=== PATIENT | female | born 1945 | race Caucasian/White ===

== ENCOUNTER → 2017-11-07 10:14 | Outpatient (CLI) | payer MEDICARE, OTHER, SELFPAY ==
--- NOTE | 2017-11-07 | DI.MG.S_ITS ---
BILATERAL DIGITAL SCREENING MAMMOGRAM 3D/2D WITH CAD: 11/07/2017 CLINICAL: Routine screening. Baseline exam. No prior exams were available for comparison. There are scattered fibroglandular elements in both breasts. Current study was also evaluated with a Computer Aided Detection (CAD) system. No significant masses, calcifications, or other findings are seen in either breast. IMPRESSION: NEGATIVE There is no mammographic evidence of malignancy. A 1 year screening mammogram is recommended. This exam was interpreted at Station ID: [id number]. NOTE: For mammograms, a report in lay terms will be sent to the patient. Approximately 15% of breast malignancies will not be visualized mammographically. In the management of a palpable breast mass, a negative mammogram must not discourage biopsy of a clinically suspicious lesion. Electronically Signed By: Jessie overton/manda:11/07/2017 10:42:44 letter sent: Normal Exam ACR BI-RADS Category 1: Negative [id number]
== END ==
PROVIDERS: PCP Physician Assistant; Visit Provider Physician Assistant
DX: Z12.31 Encounter for screening mammogram for malignant neoplasm of breast (principal)
CPT/HCPCS: 77063; 77067

== ENCOUNTER → 2018-03-23 13:41 | Outpatient (CLI) | payer MEDICARE, OTHER, SELFPAY ==
--- NOTE | 2018-03-23 | DI.MRI.S_ITS ---
PROCEDURE: MR LUMBAR SPINE WO CON INDICATIONS: SPINAL STENOSIS OF LUMBAR REGION TECHNIQUE: Noncontrast sagittal T1 spin echo and T2 fast echo, sagittal STIR, axial T1 and T2 fast spin echo through the lumbar spine. In cases with scoliosis, additional coronal T2 fast spin echo may be performed. COMPARISON: [facility], [place], XR LUMBAR SPINE 2 OR 3 VIEWS, 03/13/2018, 10:31. FINDINGS: Image quality: Excellent. Alignment and Curvature: 5 lumbar type vertebral wires are present by plain film. There is normal bony alignment. Bone Marrow: Marrow is of normal overall signal. No acute vertebral body compression fractures. Mild reactive signal within the endplates adjacent to the L3-L4, L4-L5, and L5-S1 intervertebral discs. Spinal Cord: Conus medullaris terminates at the upper L1 level. Visualized cord demonstrates normal signal and size. Paraspinous Soft Tissues: No paravertebral masses. L1-L2: Mild facet hypertrophy bilaterally. No significant canal, nor foraminal stenosis. L2-L3: Mild disc height loss and desiccation. Mild diffuse disc bulge with superimposed broad-based left far lateral protrusion. Mild facet and ligamentum flavum hypertrophy bilaterally. Mild canal stenosis. Mild left foraminal stenosis. No right foraminal stenosis. L3-L4: Mild disc height loss and desiccation. Moderate diffuse disc bulge. Mild facet and ligamentum flavum hypertrophy bilaterally. Mild canal stenosis. Mild foraminal stenosis bilaterally. L4-L5: Mild disc height loss and desiccation. Mild diffuse disc bulge with superimposed broad-based left far lateral protrusion. Bilateral facet hypertrophy. Mild canal stenosis. Mild left greater than right foraminal stenosis. There is disc abutment of the left L4 nerve root lateral to the neural foramen. L5-S1: Moderate disc height loss and desiccation. Moderate diffuse disc bulge with superimposed right far lateral broad-based protrusion. Mild facet hypertrophy bilaterally. No canal stenosis. Severe right foraminal stenosis. Mild left foraminal stenosis. Flattening deformity of the right L5 nerve root within the neural foramen. IMPRESSION: 1. Multilevel degenerative disc and facet disease, as well as ligamentum flavum hypertrophy. 2. Mild multilevel canal stenoses. 3. Multilevel foraminal stenoses, worse on the right at L5-S1, where there is flattening of the right L5 nerve root; recommend correlation with clinical symptoms to ascertain relevance of this finding. 4. There is disc abutment of the left L4 nerve root lateral to the foramen at the L4-5 disc space level. Recommend correlation with clinical symptoms to ascertain relevance of this finding. Dictated by: Jennifer Fortune M.D. on 03/23/2018 at 14:53 Approved by: Jennifer Fortune M.D. on 03/23/2018 at 15:05
== END ==
PROVIDERS: PCP Physician Assistant; Visit Provider Orthopaedic Surgery
DX: M48.061 Spinal stenosis, lumbar region without neurogenic claudication (principal); M48.07 Spinal stenosis, lumbosacral region; M51.36 Other intervertebral disc degeneration, lumbar region; M51.37 Other intervertebral disc degeneration, lumbosacral region
CPT/HCPCS: 72148

== ENCOUNTER → 2018-06-05 11:05 | Outpatient (CLI) | payer MEDICARE, OTHER, SELFPAY ==
--- NOTE | 2018-06-05 | DI.MRI.S_ITS ---
PROCEDURE: MR KNEE RT WO CON INDICATIONS: UNILATERAL PRIMARY OSTEOARTHRITIS OF RIGHT KNEE TECHNIQUE: Noncontrast sagittal PD fast spin echo and T2 fast spin echo with fat saturation, sagittal 3-D FLASH with fat saturation; coronal T1 spin echo and PD fast spin echo with fat saturation, and axial PD fast spin echo with fat saturation through the knee. COMPARISON: [facility], MR, KNEE WITHOUT CONTRAST, 08/22/2016, 9:45. FINDINGS: Image quality: Excellent. Menisci: Lateral meniscus appears grossly intact. Complex tear of the medial meniscus involving the posterior horn, body and possibly the anterior horn. There is extension of abnormal signal to the undersurface and prominent truncation of the free margin of the body and posterior horn. There is also near complete extrusion of the body on image 15 series 11. Cruciate ligaments: The anterior and posterior cruciate ligaments appear intact. Medial structures: The medial collateral ligament appears intact. The posterior oblique ligament, semimembranosus tendon insertions, oblique popliteal ligament, and meniscocapsular junction appear intact. Visualized portions of the pes anserinus tendons appear normal. No abnormal bursal fluid. Lateral structures: The lateral collateral ligament, long and short heads of the biceps femoris tendon appear intact. The popliteus tendon appears normal; the popliteofibular ligament appears intact. The posterosuperior and anteroinferior popliteomeniscal fascicles appear intact. The arcuate and fabellofibular ligaments appear intact, on either side of the lateral inferior geniculate artery. Iliotibial band appears normal. Anterior structures: Superficialinfrapatellar subcutaneous edema. The quadriceps and patellar tendons appear intact. Patellar alignment is normal. No femoral trochlear dysplasia or ventral trochlear prominence. No edema in the infrapatellar fat pad. The Bones and cartilage: No bone marrow contusions or fractures. Within the medial compartment, there is near full-thickness loss of the femoral and tibial articular cartilage with underlying subchondral marrow edema. Within the lateral compartment, and definite focal articular cartilage defect is seen. Within the patellofemoral compartment, diffuse surface fraying and partial-thickness loss of the patellar articular cartilage and mild surface fraying of the femoral trochlear cartilage. Joint space: Small joint effusion. There is a Alba's cyst which measures approximately 3 cm in the cephalocaudad dimension. Questionable punctate loose bodies seen in the posterior joint space, for example image 99 series 9 as well as in the suprapatellar recess image 93 series 9. This could be small debris and further evaluation with radiographs could be performed as clinically warranted. There is deep infrapatellar bursal fluid. IMPRESSION: Complex undersurface tear involving the body and posterior horn of the medial meniscus with near complete extrusion. This has progressed since the prior study dated 08/22/16 Degenerative joint disease, most pronounced the medial compartment. This finding is also progressed Small Alba cyst as before. Superficial infrapatellar subcutaneous edema. Small joint effusion. Deep infrapatellar bursitis, mildly increased Possible punctate loose bodies or debris as detailed above within the posterior joint space and the suprapatellar recess which appear new since the prior study. Further assessment with dedicated knee radiographs could be performed as clinically warranted. Dictated by: Prabhakar Gregory M.D. on 06/05/2018 at 15:01 Approved by: Prabhakar Gregory M.D. on 06/05/2018 at 15:14
== END ==
PROVIDERS: PCP Student in an Organized Health Care Education/Training Program; Visit Provider Orthopaedic Surgery
DX: S83.231A Complex tear of medial meniscus, current injury, right knee, initial encounter (principal); M17.11 Unilateral primary osteoarthritis, right knee; M71.21 Synovial cyst of popliteal space [Baker], right knee; M25.461 Effusion, right knee; M71.561 Other bursitis, not elsewhere classified, right knee; R60.9 Edema, unspecified
CPT/HCPCS: 73721

== ENCOUNTER → 2018-09-12 09:05 | Outpatient (CLI) | payer MEDICARE, OTHER, SELFPAY | PROVIDERS: PCP Student in an Organized Health Care Education/Training Program; Visit Provider Physician Assistant | DX: R30.0 Dysuria (principal) | CPT/HCPCS: 87077; 87086; 87186 ==

== ENCOUNTER → 2018-11-13 09:59 | Outpatient (CLI) | payer MEDICARE, OTHER, SELFPAY | PROVIDERS: PCP Student in an Organized Health Care Education/Training Program; Visit Provider Student in an Organized Health Care Education/Training Program | DX: Z13.820 Encounter for screening for osteoporosis (principal); Z78.0 Asymptomatic menopausal state; Z82.62 Family history of osteoporosis | CPT/HCPCS: 77080 ==

== ENCOUNTER → 2018-11-27 09:27 | Outpatient (CLI) | payer MEDICARE, OTHER, SELFPAY ==
[2018-11-27 10:33] LABS: Alanine Aminotransferase 24 IU/L (9-52); Albumin Globulin Ratio 1.5 (1.0-2.8); Alkaline Phosphatase 74 U/L (38-126); Aspartate Aminotransferase 25 IU/L (14-36); Bilirubin Total 0.7 mg/dL (0.2-1.3); Blood Urea Nitrogen 12 mg/dL (7-17); Calcium 9.9 mg/dL (8.4-10.2); Carbon Dioxide 30 mmol/L (22-32); Chloride 103 mmol/L (98-107); Estimated Glomerular Filt Rate > 60.0 mL/min (>60); Globulin 2.7 g/dL (1.7-4.1); Glucose 94 mg/dL (80-110); HEMOLYSIS 17 (0-50); Potassium 3.8 mmol/L (3.4-5.1); Sodium 140 mmol/L (137-145); Total Protein 6.7 g/dL (6.3-8.2)
[2018-11-27 10:50] LABS: Free T3, Triiodothyronine Free 3.27 pg/mL (2.77-5.27); Free T4, Direct Thyroxine 1.53 ng/dL (0.78-2.19)
[2018-11-27 11:04] LABS: Thyroid Stimulating Hormone 0.07 uIU/mL (0.47-4.68)
== END ==
PROVIDERS: PCP Student in an Organized Health Care Education/Training Program; Visit Provider Student in an Organized Health Care Education/Training Program
DX: E03.9 Hypothyroidism, unspecified (principal); E78.2 Mixed hyperlipidemia; I10 Essential (primary) hypertension; Z79.899 Other long term (current) drug therapy
CPT/HCPCS: 36415; 80053; 84439; 84443; 84481

== ENCOUNTER → 2018-12-06 13:43 | Outpatient (CLI) | payer MEDICARE, OTHER, SELFPAY ==
[2018-12-06 13:47] LABS: Bacteria Urine None Seen; RBC Urine None Seen (0-5/HPF)
[2018-12-06 15:37] LABS: Appearance Urine UA CLEAR; Bilirubin Urine UA NEGATIVE (NEGATIVE); Color Urine UA YELLOW; Glucose Urine UA NEGATIVE (Negative); Ketones Urine UA NEGATIVE (NEGATIVE); Leukocyte Esterase Urine UA NEGATIVE (NEGATIVE); Nitrite Urine UA NEGATIVE (Negative); Occult Blood Urine UA NEGATIVE (Negative); Protein Urine UA NEGATIVE (Negative); Specific Gravity Urine UA <=1.005 (1.000-1.035); Urobilinogen Urine UA 0.2 E.U./dL (0.2); pH Urine UA 6.5 (4.5-8.0)
[2018-12-06 15:53] LABS: Culture Indicated Urine Cult Not Indicated; Squamous Epithelial Cell Urine 0-1 /HPF (0-5/HPF); WBC Urine 0-1/HPF (0-5/HPF)
== END ==
PROVIDERS: PCP Student in an Organized Health Care Education/Training Program; Visit Provider Student in an Organized Health Care Education/Training Program
DX: R30.0 Dysuria (principal)
CPT/HCPCS: 81001

== ENCOUNTER → 2018-12-14 15:07 | Outpatient (CLI) | payer MEDICARE, OTHER, SELFPAY ==
--- NOTE | 2018-12-14 | DI.US.S_ITS ---
PROCEDURE: US PERIPH VENOUS LOW EXTREM RT INDICATIONS: RIGHT LOWER LEG PAIN TECHNIQUE: Real-time imaging, as well as color and pulse Doppler interrogation, were performed of the lower extremity deep veins from the inguinal ligament to the popliteal fossa. COMPARISON: None. FINDINGS: The common femoral, femoral and popliteal veins are normally compressible, and free of intraluminal thrombus. Color and pulse Doppler demonstrate normal phasic intraluminal flow. There is normal augmentation response to distal compression maneuver. Small Alba's cyst, which may be ruptured. IMPRESSION: 1. No deep venous thrombosis identified within the right lower extremity. 2. Small ruptured Alba's cyst Dictated by: Stanley Denton [facility] Interpreted: Prabhakar Gregory MD on 12/14/2018 at 16:37 Approved by: Prabhakar Gregory M.D. on 12/17/2018 at 13:37
== END ==
PROVIDERS: PCP Student in an Organized Health Care Education/Training Program; Visit Provider Orthopaedic Surgery
DX: M79.661 Pain in right lower leg (principal); M66.0 Rupture of popliteal cyst
CPT/HCPCS: 93971

== ENCOUNTER 2018-12-25 15:05 | Emergency (ER) | payer MEDICARE, OTHER, SELFPAY ==
[2018-12-25 15:20] VITALS: BP 138/89; PULSE 69; RESP 18; TEMP 37.1; O2SAT 96
--- NOTE | 2018-12-25 15:23 | DI.US.S_ITS ---
PROCEDURE: US ABDOMEN LIMITED INDICATIONS: RIGHT UPPER QUADRANT PAIN TECHNIQUE: Real-time focused scanning was performed of the abdomen, with image documentation. COMPARISON: None. FINDINGS: The liver demonstrates normal size. The liver demonstrates generalized increased echogenicity. This decreases ultrasound sensitivity for detection of hepatic masses. No findings of gallstones or sludge are seen. The gallbladder wall is not thickened, measuring 3 mm or less. No specific pericholecystic fluid is seen. The sonographic Silverman sign is negative. There is no biliary dilatation, the common bile duct measures 3 mm. The visualized pancreas is unremarkable. IMPRESSION: The gallbladder demonstrates a normal sonographic appearance. No biliary dilatation is seen. The liver demonstrates increased echogenicity. This finding is nonspecific, yet it is most commonly attributed to fatty infiltration. Dictated by: Robert Mcnamara M.D. on 12/25/2018 at 15:27 Approved by: Robert Mcnamara M.D. on 12/25/2018 at 15:29
[2018-12-25 15:44] LABS: Add Manual Diff / Slide Review NO; Basophils Absolute Auto 100 /uL (0-100); Basophils Percent Auto 0.9 % (0-2); Eosinophils Absolute Auto 200 /uL (0-450); Eosinophils Percent Auto 2.4 % (2-4); Hematocrit 37.5 % (36-46); Hemoglobin 13.1 g/dL (12.0-16.0); Lymphocytes Absolute Auto 2000 /uL (1100-4500); Lymphocytes Percent Auto 24.5 % (25-40); Mean Corpuscular HGB Conc 34.8 % (30-36); Mean Corpuscular Hemoglobin 31.3 PG (26-34); Monocytes Absolute Auto 800 /uL (0-900); Monocytes Percent Auto 9.9 % (3-14); Neutrophils Absolute Auto 5200 /uL (1500-7000); Neutrophils Percent Auto 62.3 % (50-75); Platelet Count 251 X10^3/uL (150-400); Red Blood Cell Count 4.17 X10^6/uL (4.0-5.2); White Blood Cell Count 8.3 X10^3/uL (4.5-11.0)
--- NOTE | 2018-12-25 15:51 | ED.ABDPAIN ---
HPI - Abdominal Pain <Monserrat Anthony PA-C - Last Filed: 12/25/18 20:30> General Chief Complaint: Abdominal Pain Stated Complaint: PAIN ON RIGHT SIDE OF RIB AND TWISTED RIGHT KNEEE Time Seen by Provider: 12/25/18 15:30 Source: patient Mode of arrival: ambulatory Limitations: no limitations History of Present Illness HPI narrative: This 73-year-old female comes to ED secondary to worsening right side/rib pain. She states that this started late Monday afternoon, she thought due to pulling heavy garden hose, denies any other specific injury. She states that she has had increased pain throughout the day yesterday, last night and today. She states that pain worsens with taking a deep breath or pressure on the area. She denies any cough, chest pain aside from this or dyspnea. She has asthma and has not had worsening of her symptoms. She denies any nausea, vomiting, or fever. She has not had any abdominal pain, urinary symptoms, or bowel habit changes. She denies any new foods or diet change. She states that in rushing to come in she twisted her right knee, already has arthritis there, and has had some increased pain and swelling since, no sensation of laxity. She otherwise denies any new lower extremity pain or swelling Related Data Home Medications Medication Instructions Recorded Confirmed cholecalciferol (vitamin D3) 1 tab PO QDAY #0 10/17/16 11/21/18 [Vitamin D3] CBD PO .QD 11/21/18 11/21/18 Forskolin Extract PO .QD 11/21/18 11/21/18 paroxetine HCl 10 mg PO DAILY 12/25/18 12/25/18 Previous Rx's Medication Instructions Recorded Fish Oil 1,000 mg PO BID #180 cap 02/08/16 [glucosamine/MSM] 1,500 mg Q DAY #90 tab 02/08/16 cyanocobalamin (vitamin B-12) 1,500 mcg PO QDAY #90 tab-cap 02/08/16 [Vitamin B-12] fluticasone propionate 220 1 puff INHALATION BID #12 gram 02/22/18 mcg/actuation HFA aerosol inhaler folic acid 1 mg tablet 1 mg PO QDAY #90 tab 05/25/18 irbesartan 150 mg tablet 150 mg PO QDAY #90 tab 05/25/18 paroxetine 40 mg tablet 40 mg PO QDAY #90 tab 06/28/18 zolpidem 5 mg tablet 5 mg PO HSP PRN #10 tab 06/28/18 fluticasone 250 mcg-salmeterol 50 1 inhalation INHALATION BID #60 07/25/18 mcg/dose blistr powdr for dose inhalation levothyroxine 125 mcg tablet 125 mcg PO QDAY #90 tab 08/28/18 montelukast 10 mg tablet 10 mg PO QDAY #90 tab 09/28/18 liothyronine 5 mcg tablet 5 mcg PO QDAY #90 tab 10/16/18 atorvastatin 20 mg tablet 20 mg PO HS #90 tab 11/21/18 omeprazole 20 mg capsule,delayed 20 mg PO Q DAY #90 cap 11/21/18 release buspirone 5 mg tablet 5 mg PO BID #60 tab 12/19/18 lidocaine [Lidoderm] 3 patch TOP DAILY #30 each 12/25/18 oxycodone-acetaminophen [Percocet] 1 tab PO Q4-6H PRN #12 tab 12/25/18 potassium chloride 10 meq PO DAILY #7 tab 12/25/18 Allergies Allergy/AdvReac Type Severity Reaction Status Date / Time latex Allergy Rash Verified 11/21/18 13:28 Review of Systems <Monserrat Anthony PA-C - Last Filed: 12/25/18 20:30> Review of Systems ROS Unobtainable: All systems reviewed & are unremarkable except as noted in HPI and below PFSH <Monserrat Anthony PA-C - Last Filed: 12/25/18 20:30> Medical History Asthma (Chronic) Facet arthropathy of spine (Chronic) Hypothyroidism (Chronic) Multiple benign nevi (Chronic) Seborrheic keratoses (Chronic) Spinal stenosis, lumbar (Chronic) Spine pain, lumbosacral (Chronic) Tear of medial meniscus of right knee (Resolved 03/2016) Surgical History (Updated 05/23/18 @ 12:48 by Janeth Antonio) History of appendectomy (Resolved) History of hysterectomy (Resolved) S/P arthroscopic partial medial meniscectomy (Resolved 09/06/16) Social History Smoking Status: Never smoker alcohol intake: never substance use type: does not use Social History Smoking Status: Never smoker alcohol intake: never substance use type: does not use Exam <Monserrat Anthony PA-C - Last Filed: 12/25/18 20:30> Narrative Exam Narrative: GENERAL APPEARANCE: Patient sitting comfortably, in no distress. HEENT: PERRL, EOMI, no scleral icterus, normal oropharynx NECK: Supple LUNGS: Clear to auscultation bilaterally. CHEST: Tender along the course of the right 12 rib anterior lateral, no tenderness elsewhere over the chest HEART: Rate and rhythm regular, normal S1 and S2, no S3 or S4. ABDOMEN: Soft, moderate right upper quadrant tenderness, most at the costal margin, no guarding or rebound, nondistended, bowel sounds present x 4 quadrants, no masses palpable, no hepatosplenomegaly. No CVAT EXTREMITIES: No edema, no cyanosis DERMATOLOGIC: No jaundice or exanthem NEUROLOGIC: Alert and oriented with normal speech and coordination Initial Vital Signs Initial Vital Signs: Vital Signs Temperature 98.7 F 12/25/18 15:20 Pulse Rate 69 12/25/18 15:20 Respiratory Rate 18 12/25/18 15:20 Blood Pressure 138/89 12/25/18 15:20 Pulse Oximetry 96 12/25/18 15:20 <Ifrah Luther MD - Last Filed: 12/27/18 09:01> Initial Vital Signs Initial Vital Signs: Vital Signs Temperature 98.7 F 12/25/18 15:20 Pulse Rate 69 12/25/18 15:20 Respiratory Rate 18 12/25/18 15:20 Blood Pressure 138/89 12/25/18 15:20 Pulse Oximetry 96 12/25/18 15:20 Course <Monserrat Anthony PA-C - Last Filed: 12/25/18 20:30> Additional Information: Suspect intercostal strain/rib contusion based on patient's history and exam findings. Reviewed no acute findings on the lab work or imaging studies to explain symptoms. Patient unable to tolerate anti-inflammatories apparently due to worsening of her asthma on them in the past. Pain medication prescribed and she will follow up with her PCP this week. She agreed to return if any acutely worsening symptoms in the interim. Orders Ordered: Discontinued Medications Oxycodone/Acetaminophen (Percocet 5/325) 1 tab PO NOW ONE Stop: 12/25/18 17:16 Last Admin: 12/25/18 17:19 Dose: 1 tab Vital Signs - 8 hr 12/25/18 15:20 12/25/18 17:25 Temperature 98.7 F Pulse Rate 69 63 Respiratory Rate 18 17 Blood Pressure 138/89 Blood Pressure [Left Arm] 138/70 Pulse Oximetry 96 100 <Ifrah Luther MD - Last Filed: 12/27/18 09:01> Orders Ordered: Discontinued Medications Oxycodone/Acetaminophen (Percocet 5/325) 1 tab PO NOW ONE Stop: 12/25/18 17:16 Last Admin: 12/25/18 17:19 Dose: 1 tab Vital Signs - 8 hr 12/25/18 15:20 12/25/18 17:25 Temperature 98.7 F Pulse Rate 69 63 Respiratory Rate 18 17 Blood Pressure 138/89 Blood Pressure [Left Arm] 138/70 Pulse Oximetry 96 100 MDM - Abdominal Pain <Monserrat Anthony PA-C - Last Filed: 12/25/18 20:30> Lab Data Attestation: I reviewed the patient's lab results. Result diagrams: 12/25/18 15:39 12/25/18 15:39 Lab Results 12/25/18 12/25/18 12/25/18 Range/Units 15:39 15:39 15:39 WBC 8.3 (4.5-11.0) X10^3/uL RBC 4.17 (4.0-5.2) X10^6/uL Hgb 13.1 (12.0-16.0) g/dL Hct 37.5 (36-46) % MCV 90.0 (80-100) fL MCH 31.3 (26-34) PG MCHC 34.8 (30-36) % RDW 14.0 (11.6-14.8) % Plt Count 251 (150-400) X10^3/uL Neut % (Auto) 62.3 (50-75) % Lymph % (Auto) 24.5 L (25-40) % [place] % (Auto) 9.9 (3-14) % Eos % (Auto) 2.4 (2-4) % Baso % (Auto) 0.9 (0-2) % Neut # (Auto) 5200 (4228-4322) /uL Lymph # (Auto) 2000 (8143-8870) /uL [place] # (Auto) 800 (0-900) /uL Eos # (Auto) 200 (0-450) /uL Baso # (Auto) 100 (0-100) /uL Sodium 142 (137-145) mmol/L Potassium 3.0 L (3.4-5.1) mmol/L Chloride 105 (98-107) mmol/L Carbon Dioxide 26 (22-32) mmol/L BUN 12 (7-17) mg/dL Creatinine 0.70 (0.52-1.04) mg/dL Estimated GFR > 60.0 (>60) mL/min BUN/Creatinine Ratio 17.1 (6-22) Glucose 107 (80-110) mg/dL Calcium 9.4 (8.4-10.2) mg/dL Total Bilirubin 0.5 (0.2-1.3) mg/dL AST 26 (14-36) IU/L ALT 23 (9-52) IU/L Alkaline Phosphatase 96 (38-126) U/L Total Creatine Kinase 57 (30-135) U/L CK-MB (CK-2) TNP CK-MB (CK-2) Rel Index TNP Troponin I < 0.012 (0.01-0.034) ng/mL Total Protein 7.2 (6.3-8.2) g/dL Albumin 4.1 (3.5-5.0) g/dL Globulin 3.1 (1.7-4.1) g/dL Albumin/Globulin Ratio 1.3 (1.0-2.8) Lipase 54 (23-300) U/L Point of care testing: Urine Dip Bedside Urine Glucose Negative Bedside Urine Bilirubin - Negative Bedside Urine Ketone - Negative Urine Specific [place] 1.020 Bedside Urine Occult Blood - Negative Bedside Urine pH 6.0 Bedside Urine Protein - Negative Bedside Urine Urobilinogen - Negative Bedside Urine Nitrite - Negative Bedside Urine Leukocytes - Negative Esterase Imaging Data US - abdomen: Radiologist's impression: [address] [address] Ultrasound Report Signed Patient: Zora Stevenson LMR#: [id number] : 1946Acct:[id number] Age/Sex: 73 / FDate of Service: 12/25/18 Loc: ED Accession Number: [id number] Procedure: US abdomen limited Ordering Provider: Ifrah Luther MD PROCEDURE: US ABDOMEN LIMITED INDICATIONS: RIGHT UPPER QUADRANT PAIN TECHNIQUE: Real-time focused scanning was performed of the abdomen, with image documentation. COMPARISON: None. FINDINGS: The liver demonstrates normal size. The liver demonstrates generalized increased echogenicity. This decreases ultrasound sensitivity for detection of hepatic masses. No findings of gallstones or sludge are seen. The gallbladder wall is not thickened, measuring 3 mm or less. No specific pericholecystic fluid is seen. The sonographic Silverman sign is negative. There is no biliary dilatation, the common bile duct measures 3 mm. The visualized pancreas is unremarkable. IMPRESSION: The gallbladder demonstrates a normal sonographic appearance. No biliary dilatation is seen. The liver demonstrates increased echogenicity. This finding is nonspecific, yet it is most commonly attributed to fatty infiltration. Dictated by: Robert Mcnamara M.D. on 12/25/2018 at 15:27 Approved by: Robert Mcnamara M.D. on 12/25/2018 at 15:29 ECG Data Attestation: I personally reviewed and interpreted this ECG as follows: (Normal sinus rhythm, rate 69, normal axis) <Ifrah Luther MD - Last Filed: 12/27/18 09:01> Lab Data Lab Results 12/25/18 12/25/18 12/25/18 Range/Units 15:39 15:39 15:39 WBC 8.3 (4.5-11.0) X10^3/uL RBC 4.17 (4.0-5.2) X10^6/uL Hgb 13.1 (12.0-16.0) g/dL Hct 37.5 (36-46) % MCV 90.0 (80-100) fL MCH 31.3 (26-34) PG MCHC 34.8 (30-36) % RDW 14.0 (11.6-14.8) % Plt Count 251 (150-400) X10^3/uL Neut % (Auto) 62.3 (50-75) % Lymph % (Auto) 24.5 L (25-40) % [place] % (Auto) 9.9 (3-14) % Eos % (Auto) 2.4 (2-4) % Baso % (Auto) 0.9 (0-2) % Neut # (Auto) 5200 (7385-2447) /uL Lymph # (Auto) 2000 (6580-9903) /uL [place] # (Auto) 800 (0-900) /uL Eos # (Auto) 200 (0-450) /uL Baso # (Auto) 100 (0-100) /uL Sodium 142 (137-145) mmol/L Potassium 3.0 L (3.4-5.1) mmol/L Chloride 105 (98-107) mmol/L Carbon Dioxide 26 (22-32) mmol/L BUN 12 (7-17) mg/dL Creatinine 0.70 (0.52-1.04) mg/dL Estimated GFR > 60.0 (>60) mL/min BUN/Creatinine Ratio 17.1 (6-22) Glucose 107 (80-110) mg/dL Calcium 9.4 (8.4-10.2) mg/dL Total Bilirubin 0.5 (0.2-1.3) mg/dL AST 26 (14-36) IU/L ALT 23 (9-52) IU/L Alkaline Phosphatase 96 (38-126) U/L Total Creatine Kinase 57 (30-135) U/L CK-MB (CK-2) TNP CK-MB (CK-2) Rel Index TNP Troponin I < 0.012 (0.01-0.034) ng/mL Total Protein 7.2 (6.3-8.2) g/dL Albumin 4.1 (3.5-5.0) g/dL Globulin 3.1 (1.7-4.1) g/dL Albumin/Globulin Ratio 1.3 (1.0-2.8) Lipase 54 (23-300) U/L Point of care testing: Urine Dip Bedside Urine Glucose Negative Bedside Urine Bilirubin - Negative Bedside Urine Ketone - Negative Urine Specific [place] 1.020 Bedside Urine Occult Blood - Negative Bedside Urine pH 6.0 Bedside Urine Protein - Negative Bedside Urine Urobilinogen - Negative Bedside Urine Nitrite - Negative Bedside Urine Leukocytes - Negative Esterase Discharge Plan Departure Patient Disposition: Home Clinical Impression: Rib pain on right side Intercostal muscle strain Qualifiers: Encounter type: initial encounter Qualified Code(s): S29.011A - Strain of muscle and tendon of front wall of thorax, initial encounter Discharge Date/Time: 12/25/18 17:34 Interventions: ED Discharge Assessment Last Done: 12/25/18 17:33 Instructions: DI for Costochondritis Activity Restrictions/Additional Instructions: I think that have strained muscles at the insertion and in between your right lower ribs, and this is causing your pain. I have given you instructions for costochondritis because they are similar. Please take the pain medicine as needed (do not drive as it can make you sleepy). Try the topical pain patches as well for this and your knee as needed. Please follow the instructions the respiratory therapist gave you including doing the ?pillow hugging? technique and taking deep breaths multiple times daily to help keep your lungs expanded. Use your inhalers as usual. Return as we talked about if you have any new or acutely worsening symptoms, i.e. acute increase in pain, new shortness of breath, fever, etc. Otherwise, please see your PCP in the next couple of days for recheck and to determine whether you need any change or more pain medicine. I think that your twisting of your knee is more of a soft tissue injury/strain, but it could exacerbate your arthritis as well, so please use the knee brace for support and to help with pain. We noted coincidentally that your potassium was low on your lab work today, so I have sent prescribed a small dose of potassium for you to start today. Please make sure you recheck your level with your PCP later this week to see if you should continue. Prescriptions: New potassium chloride 10 mEq tablet extended release 10 meq PO DAILY Qty: 7 RF: 0 oxycodone-acetaminophen [Percocet] 5-325 mg tablet 1 tab PO Q4-6H PRN (Reason: acute rib pain) Qty: 12 RF: 0 lidocaine [Lidoderm] 5 % adhesive patch,medicated 3 patch TOP DAILY Qty: 30 RF: 0 No Action cyanocobalamin (vitamin B-12) [Vitamin B-12] 500 MCG tablet 1,500 mcg PO QDAY Qty: 90 RF: 3 Fish Oil 1,000 mg PO BID Qty: 180 RF: 3 [glucosamine/MSM] 1,500 mg Q DAY Qty: 90 RF: 3 cholecalciferol (vitamin D3) [Vitamin D3] 2,000 UNIT tablet 1 tab PO QDAY Qty: 0 RF: 0 fluticasone propionate [Flovent HFA] 220 mcg/actuation HFA aerosol inhaler 1 puff INHALATION BID Qty: 12 RF: 0 irbesartan 150 mg tablet 150 mg PO QDAY Qty: 90 RF: 3 folic acid 1 mg tablet 1 mg PO QDAY Qty: 90 RF: 3 paroxetine HCl 40 mg tablet 40 mg PO QDAY Qty: 90 RF: 3 zolpidem 5 mg tablet 5 mg PO HSP PRN (Reason: insomnia) Qty: 10 RF: 5 Advair Diskus 250-50 mcg/dose blister with device 1 inhalation INHALATION BID Qty: 60 RF: 5 levothyroxine [Synthroid] 125 mcg tablet 125 mcg PO QDAY Qty: 90 RF: 1 montelukast 10 mg tablet 10 mg PO QDAY Qty: 90 RF: 0 liothyronine [Cytomel] 5 mcg tablet 5 mcg PO QDAY Qty: 90 RF: 3 Hold Instructions: Repeat testing buspirone 5 mg tablet 5 mg PO BID Qty: 60 RF: 0 Forskolin Extract 300 mg capsule PO .QD RF: 0 CBD 10 mg capsule PO .QD RF: 0 atorvastatin 20 mg tablet 20 mg PO HS Qty: 90 RF: 3 omeprazole 20 mg capsule,delayed release(DR/EC) 20 mg PO Q DAY Qty: 90 RF: 1 paroxetine HCl 10 mg tablet 10 mg PO DAILY RF: 0 Referrals: Destin Ferrera MD [Primary Care Provider] -
[2018-12-25 15:55] LABS: Creatine Kinase 57 U/L (30-135); Lipase 54 U/L (23-300)
[2018-12-25 15:57] LABS: Alanine Aminotransferase 23 IU/L (9-52); Albumin 4.1 g/dL (3.5-5.0); Albumin Globulin Ratio 1.3 (1.0-2.8); Alkaline Phosphatase 96 U/L (38-126); Aspartate Aminotransferase 26 IU/L (14-36); BUN Creatinine Ratio 17.1 (6-22); Bilirubin Total 0.5 mg/dL (0.2-1.3); Blood Urea Nitrogen 12 mg/dL (7-17); Calcium 9.4 mg/dL (8.4-10.2); Carbon Dioxide 26 mmol/L (22-32); Chloride 105 mmol/L (98-107); Estimated Glomerular Filt Rate > 60.0 mL/min (>60); Globulin 3.1 g/dL (1.7-4.1); Glucose 107 mg/dL (80-110); HEMOLYSIS < 15 (0-50); Sodium 142 mmol/L (137-145); Total Protein 7.2 g/dL (6.3-8.2)
--- NOTE | 2018-12-25 16:01 | DI.RAD.S_ITS ---
PROCEDURE: XR CHEST 2V INDICATIONS: R. 12th rib anterior pain TECHNIQUE: 2 views of the chest were acquired. COMPARISON: None. FINDINGS: Surgical changes and devices: None. Lungs and pleura: Lungs are clear. No pleural effusions or pneumothorax. Mediastinum: Mediastinal contours are normal. Heart size is normal. Bones and chest wall: No suspicious bony abnormalities. Soft tissues appear unremarkable. IMPRESSION: No acute process. Dictated by: Jennifer Fortune M.D. on 12/25/2018 at 16:38 Approved by: Jennifer Fortune M.D. on 12/25/2018 at 16:39
[2018-12-25 16:07] LABS: Troponin I < 0.012 ng/mL (0.01-0.034)
[2018-12-25] MEDS: OXYCODONE/ACETAMINOPHEN 5/325 TABLET 1 TAB PO (17:19)
[2018-12-25 17:25] VITALS: BP 138/70; PULSE 63; RESP 17; O2SAT 100
== END 2018-12-25 17:34 | disposition home or self-care (01) ==
PROVIDERS: Emergency Medicine; Emergency Provider Internal Medicine; PCP Student in an Organized Health Care Education/Training Program
DX: S29.011A Strain of muscle and tendon of front wall of thorax, initial encounter (principal)
CPT/HCPCS: 36591; 71046; 76705; 80053; 81003; 82550; 83690; 84484; 85025; 93005; 99283; 99285

== ENCOUNTER → 2019-01-24 09:21 | Outpatient (CLI) | payer MEDICARE, OTHER, SELFPAY ==
[2019-01-24 10:13] LABS: Free T3, Triiodothyronine Free 3.16 pg/mL (2.77-5.27); Free T4, Direct Thyroxine 1.94 ng/dL (0.78-2.19)
[2019-01-24 10:27] LABS: Thyroid Stimulating Hormone 0.14 uIU/mL (0.47-4.68)
== END ==
PROVIDERS: PCP Student in an Organized Health Care Education/Training Program; Visit Provider Student in an Organized Health Care Education/Training Program
DX: E03.9 Hypothyroidism, unspecified (principal); T38.1X4A Poisoning by thyroid hormones and substitutes, undetermined, initial encounter
CPT/HCPCS: 36415; 84439; 84443; 84481

== ENCOUNTER 2019-04-11 17:09 | Emergency (ER) | payer MEDICARE, OTHER, SELFPAY ==
[2019-04-11 17:18] VITALS: BP 143/71; PULSE 75; RESP 13; TEMP 36.4; O2SAT 97; BMI 23.3
--- NOTE | 2019-04-11 17:18 | DI.RAD.S_ITS ---
PROCEDURE: XR CHEST 1V INDICATIONS: chest pain TECHNIQUE: One view of the chest was acquired. COMPARISON: [facility], CR, XR CHEST 2V, 12/25/2018, 16:11. FINDINGS: Surgical changes and devices: None. Lungs and pleura: Stable subsegmental atelectasis versus scarring at the right midlung zone. No acute airspace disease. No pleural effusions or pneumothorax. Mediastinum: Mediastinal contours appear normal. Heart size is normal. Bones and chest wall: No suspicious bony lesions. Overlying soft tissues appear unremarkable. IMPRESSION: Stable examination of the chest. No acute cardiopulmonary process. Dictated by: Lb Schaefer M.D. on 04/11/2019 at 17:53 Approved by: Lb Schaefer M.D. on 04/11/2019 at 17:54
--- NOTE | 2019-04-11 17:27 | ED.CHESTPAIN ---
HPI - Chest Pain General Chief Complaint: Chest Pain Stated Complaint: CHEST PAIN, HURTS TO TAKE A DEEP BREATH Time Seen by Provider: 04/11/19 17:22 Source: patient Mode of arrival: Ambulatory Limitations: no limitations History of Present Illness HPI narrative: 73-year-old female with a history of asthma. Uses Advair it night. Use is albuterol as needed here for evaluation of a cough that started this morning. Is nonproductive. Approximately 1000 hours this morning started having retrosternal chest pressure. Has been consistent since then. She thinks that potentially has even worsened since then. Radiating up to her neck. Not worse with palpation or movement but does hurt when she takes a big deep breath. Had right partial knee replacement several weeks ago. Has had no lower extremity swelling. Does have history of reflux. Is currently on omeprazole. Has not tried anything for symptoms prior to Related Data Home Medications Medication Instructions Recorded Confirmed cholecalciferol (vitamin D3) 1 tab PO DAILY #0 10/17/16 04/11/19 [Vitamin D3] Forskolin Extract 300 mg PO DAILY 11/21/18 04/11/19 Fish Oil 1,000 mg PO DAILY 04/11/19 04/11/19 cyanocobalamin (vitamin B-12) 1,500 mcg PO DAILY 04/11/19 04/11/19 [Vitamin B-12] folic acid 1 mg PO DAILY 04/11/19 04/11/19 irbesartan 150 mg PO QPM 04/11/19 04/11/19 levothyroxine 112 mcg PO DAILY 04/11/19 04/11/19 montelukast 10 mg PO DAILY 04/11/19 04/11/19 omeprazole 20 mg PO DAILY 04/11/19 04/11/19 Previous Rx's Medication Instructions Recorded zolpidem 5 mg tablet 5 mg PO HSP PRN #10 tab 06/28/18 atorvastatin 20 mg tablet 20 mg PO HS #90 tab 11/21/18 lidocaine [Lidoderm] 3 patch TOP DAILY #30 each 12/25/18 potassium chloride 10 meq PO DAILY #7 tab 12/25/18 mirabegron 25 mg tablet,extended 25 mg PO DAILY #90 tab 01/07/19 release 24 hr buspirone 5 mg tablet 5 mg PO BID #180 tab 01/24/19 paroxetine HCl 40 mg tablet 40 mg PO QDAY #90 tab 01/24/19 fluticasone 250 mcg-salmeterol 50 1 inhalation INHALATION BID #60 01/28/19 mcg/dose blistr powdr for dose inhalation Allergies Allergy/AdvReac Type Severity Reaction Status Date / Time latex Allergy Rash Verified 04/11/19 17:18 Review of Systems Constitutional Constitutional: Denies fever(s) Cardiovascular Cardiovascular: Reports chest pain, Reports chest pain at rest, Denies leg edema, Reports radiating jaw, neck or arm pain, Denies palpitations and Denies dyspnea on exertion Respiratory Respiratory: Reports pain on inspiration, Reports pain with cough and Denies dyspnea on exertion Gastrointestinal Gastrointestinal: Denies abdominal pain, Denies nausea and Denies vomiting Genitourinary Genitourinary: Denies dysuria Musculoskeletal Musculoskeletal: Denies myalgias and Denies arthralgias Integumentary/Breasts Skin/Breast: Denies rash Neurologic Neurologic: Denies behavioral changes Psychiatric Psychiatric: Denies behavioral changes Endocrine Endocrine: Denies palpitations Hematologic/Lymphatic Hematologic/Lymphatic: Denies easy bleeding and Denies easy bruising Patient History Medical History Asthma (Chronic) Facet arthropathy of spine (Chronic) Hypothyroidism (Chronic) Multiple benign nevi (Chronic) Seborrheic keratoses (Chronic) Spinal stenosis, lumbar (Chronic) Spine pain, lumbosacral (Chronic) Tear of medial meniscus of right knee (Resolved 03/2016) Surgical History (Updated 03/29/19 @ 09:12 by Razia Zheng MA) History of appendectomy (Resolved) History of arthroplasty of right knee (Acute) History of hysterectomy (Resolved) S/P arthroscopic partial medial meniscectomy (Resolved 09/06/16) Social History Smoking Status: Never smoker alcohol intake: never substance use type: does not use alcohol intake frequency: holidays/special occasions only Substance Use Type: does not use Exam Initial Vital Signs Initial Vital Signs: Vital Signs Temperature 97.6 F 04/11/19 17:18 Pulse Rate 75 04/11/19 17:18 Respiratory Rate 13 04/11/19 17:18 Blood Pressure 143/71 H 04/11/19 17:18 Pulse Oximetry 97 04/11/19 17:18 Const General: cooperative, comfortable, well developed and well groomed Orientation: alert, awake and oriented x3 HENMT Head: normal to inspection and normocephalic Chest Chest: No crepitus, No tenderness and No rash Resp Effort & Inspection: normal respiratory effort Auscultation: clear to auscultation bilaterally Cardio Rate: regular rate Rhythm: regular rhythm GI Inspection: non-distended Palpation: soft and No firm Skin Lesions: no lesions Rashes: no rashes Neuro General: alert, awake and oriented x3 Cognition: normal cognition Speech: speech normal Motor: muscle tone normal throughout Sensory Exam: no sensory deficits noted Extrem General: normal to inspection and capillary refill normal Psych Appearance: grossly normal and well kempt Scores GCS [place] coma scale eye opening: Spontaneous Mar[place] coma scale verbal response: Orientated [place] coma scale motor response: Obey commands Mariz[place] coma scale total score: 15 HEART Score Heart Score history: Slightly Suspicious Heart Score EKG: Non-Specific repolarization disturbance Heart Score Age: > or = 65 years old Heart Score risk factors: 1-2 risk factors Heart Score troponin: < or = to normal limit Heart Score Total: 4 Course Orders Ordered: ED Orders 04/11/19 17:12 Complete Blood Count AUTO DIFF Stat Comprehensive Metabolic Panel Stat D Dimer Stat Lipase Stat Partial Thromboplastin Time Stat Prothrombin Time INR Stat Troponin & CK Cardiac Panel Stat 04/11/19 17:18 XR chest 1V Stat EKG-12 Lead Stat 04/11/19 17:59 CT angio chest PE protocol Stat Discontinued Medications Al Hydrox/Mg Hydrox/Simethicone 20 ml/ Lidocaine HCl 15 ml 0 ml PO NOW ONE Stop: 04/11/19 19:15 Last Admin: 04/11/19 19:23 Dose: 20 ml Documented by: RUTH Sodium Chloride (Normal Saline 0.9%) 1,000 mls @ 1,000 mls/hr IV BOLUS ONE Stop: 04/11/19 18:58 Last Infusion: 04/11/19 19:22 Dose: 0 mls/hr Documented by: Admin: 04/11/19 18:30 Dose: 1,000 mls/hr Documented by: RUTH Vital Signs Vital signs: Vital Signs - 8 hr 04/11/19 17:18 04/11/19 19:05 Temperature 97.6 F Pulse Rate 75 70 Respiratory Rate 13 14 Blood Pressure 143/71 H Blood Pressure [Right Arm] 155/75 H Pulse Oximetry 97 98 MDM - Chest Pain Lab Data Attestation: I reviewed the patient's lab results. Result diagrams: 04/11/19 17:12 04/11/19 17:12 Labs: Lab Results 04/11/19 04/11/19 04/11/19 Range/Units 17:12 17:12 17:12 WBC 11.8 H (4.5-11.0) X10^3/uL RBC 4.70 (4.0-5.2) X10^6/uL Hgb 14.4 (12.0-16.0) g/dL Hct 41.4 (36-46) % MCV 88.1 (80-100) fL MCH 30.8 (26-34) PG MCHC 34.9 (30-36) % RDW 13.7 (11.6-14.8) % Plt Count 228 (150-400) X10^3/uL Neut % (Auto) 69.9 (50-75) % Lymph % (Auto) 17.8 L (25-40) % [place] % (Auto) 8.1 (3-14) % Eos % (Auto) 3.5 (2-4) % Baso % (Auto) 0.7 (0-2) % Neut # (Auto) 8300 H (6838-9669) /uL Lymph # (Auto) 2100 (4072-0854) /uL [place] # (Auto) 1000 H (0-900) /uL Eos # (Auto) 400 (0-450) /uL Baso # (Auto) 100 (0-100) /uL PT 11.9 (10.1-12.7) SECONDS INR 1.0 (0.9-1.3) APTT 30 (26.4-36.2) SECONDS D-Dimer (<230) ng/mL Sodium 137 (137-145) mmol/L Potassium 3.0 L (3.4-5.1) mmol/L Chloride 98 (98-107) mmol/L Carbon Dioxide 27 (22-32) mmol/L BUN 14 (7-17) mg/dL Creatinine 0.80 (0.52-1.04) mg/dL Estimated GFR > 60.0 (>60) mL/min BUN/Creatinine Ratio 17.5 (6-22) Glucose 107 (80-110) mg/dL Calcium 9.9 (8.4-10.2) mg/dL Total Bilirubin 0.7 (0.2-1.3) mg/dL AST 30 (15-46) IU/L ALT 26 (9-52) IU/L Alkaline Phosphatase 106 (38-126) U/L Total Creatine Kinase 35 (30-135) U/L CK-MB (CK-2) TNP CK-MB (CK-2) Rel Index TNP Troponin I < 0.012 (0.01-0.034) ng/mL Total Protein 7.8 (6.3-8.2) g/dL Albumin 4.5 (3.5-5.0) g/dL Globulin 3.3 (1.7-4.1) g/dL Albumin/Globulin Ratio 1.4 (1.0-2.8) Lipase 90 (23-300) U/L 04/11/ Range/Units 17:12 WBC (4.5-11.0) X10^3/uL RBC (4.0-5.2) X10^6/uL Hgb (12.0-16.0) g/dL Hct (36-46) % MCV (80-100) fL MCH (26-34) PG MCHC (30-36) % RDW (11.6-14.8) % Plt Count (150-400) X10^3/uL Neut % (Auto) (50-75) % Lymph % (Auto) (25-40) % [place] % (Auto) (3-14) % Eos % (Auto) (2-4) % Baso % (Auto) (0-2) % Neut # (Auto) (1779-8775) /uL Lymph # (Auto) (5373-4683) /uL [place] # (Auto) (0-900) /uL Eos # (Auto) (0-450) /uL Baso # (Auto) (0-100) /uL PT (10.1-12.7) SECONDS INR (0.9-1.3) APTT (26.4-36.2) SECONDS D-Dimer 379 H (<230) ng/mL Sodium (137-145) mmol/L Potassium (3.4-5.1) mmol/L Chloride (98-107) mmol/L Carbon Dioxide (22-32) mmol/L BUN (7-17) mg/dL Creatinine (0.52-1.04) mg/dL Estimated GFR (>60) mL/min BUN/Creatinine Ratio (6-22) Glucose (80-110) mg/dL Calcium (8.4-10.2) mg/dL Total Bilirubin (0.2-1.3) mg/dL AST (15-46) IU/L ALT (9-52) IU/L Alkaline Phosphatase (38-126) U/L Total Creatine Kinase (30-135) U/L CK-MB (CK-2) CK-MB (CK-2) Rel Index Troponin I (0.01-0.034) ng/mL Total Protein (6.3-8.2) g/dL Albumin (3.5-5.0) g/dL Globulin (1.7-4.1) g/dL Albumin/Globulin Ratio (1.0-2.8) Lipase (23-300) U/L Imaging Data Chest x-ray: Radiologist's impression: [address] [address] XRay Report Signed Patient: Zora Stevenson LMR#: [id number] : 5Acct:[id number] Age/Sex: 73 / FDate of Service: 04/11/19 Loc: ED Accession Number: [id number] Procedure: XR chest 1V Ordering Provider: Timbo Aquino D.O. PROCEDURE: XR CHEST 1V INDICATIONS: chest pain TECHNIQUE: One view of the chest was acquired. COMPARISON: [facility], , XR CHEST 2V, 12/25/2018, 16:11. FINDINGS: Surgical changes and devices: None. Lungs and pleura: Stable subsegmental atelectasis versus scarring at the right midlung zone. No acute airspace disease. No pleural effusions or pneumothorax. Mediastinum: Mediastinal contours appear normal. Heart size is normal. Bones and chest wall: No suspicious bony lesions. Overlying soft tissues appear unremarkable. IMPRESSION: Stable examination of the chest. No acute cardiopulmonary process. Dictated by: Lb Schaefer M.D. on 04/11/2019 at 17:53 Approved by: Lb Schaefer M.D. on 04/11/2019 at 17:54 CT scan - chest: Radiologist's impression: [address] [address] [address] Scan Report Signed Patient: Zora Stevenson LMR#: [id number] : 5Acct:[id number] Age/Sex: 73 / FDate of Service: 04/11/19 Loc: ED Accession Number: [id number] Procedure: CT angio chest PE protocol Ordering Provider: Timbo Aquino D.O. PROCEDURE: CT ANGIO CHEST PE PROTOCOL INDICATIONS: Chest pain, shortness of breath, tachycardia TECHNIQUE: After the administration of intravenous contrast, 2 mm thick sections acquired from the pulmonary apices to the posterior costophrenic angles. 3-dimensional maximum intensity projection (MIP) coronal and sagittal reformats were then acquired through the thorax. For radiation dose reduction, the following was used: automated exposure control, adjustment of mA and/or kV according to patient size. COMPARISON: [facility], CR, XR CHEST 1V, 04/11/2019, 17:32. FINDINGS: Image quality: Excellent. Pulmonary arteries: Pulmonary arteries are normal in size, and demonstrate no intraluminal filling defects to suggest central pulmonary embolism. Lungs and pleura: Patchy bilateral lower lobe groundglass opacities more pronounced in the dependent portions. No focal consolidation. No pleural effusions or pneumothorax. Central and peripheral airways are patent with mild perihilar airway thickening. Mediastinum: Heart size is normal, without pericardial effusion. Scattered atherosclerotic calcifications of the coronary arteries are noted. No mediastinal or hilar adenopathy. Thoracic aorta is normal in caliber and enhancement. Esophagus is normal in caliber, without hiatal hernia. Bones and chest wall: No suspicious bony lesions. No acute vertebral body compression fractures. Multilevel spondylitic changes throughout the imaged spine. Ribs and thoracic spine appear intact throughout. Thyroid gland is unremarkable. No axillary or supraclavicular adenopathy. Small hiatal hernia. Abdomen: Visualized upper abdominal solid organs appear normal in the early arterial phase of enhancement. IMPRESSION: 1. No acute pulmonary emboli. 2. Diffuse patchy bilateral lower lobe groundglass opacities predominantly in the dependent portions of the lung bases. Some may be attributed to dependent atelectasis. Concurrent infectious/inflammatory process may have a similar appearance. No focal consolidation. Early pulmonary edema is conceivable if clinically appropriate. 3. Mild perihilar airway thickening which can be seen with bronchitis. Dictated by: Lb Schaefer M.D. on 04/11/2019 at 18:41 Approved by: Lb Schaefer M.D. on 04/11/2019 at 18:50 ECG Data Attestation: I personally reviewed and interpreted this ECG as follows: Prior ECG tracings: not available for review Interpretation: Sinus rhythm Ventricular rate is 75 LVH Left axis deviation Normal QRS Normal QTC Nonspecific ST T wave changes MDM Narrative Medical decision making narrative: Patient does have a heart score for however she has had symptoms for greater than 6 hours with a negative troponin. Has nonspecific findings on her EKG. Her chest x-ray shows no signs of any aneurysm or pulmonary embolism. She had minimal relief from the GI cocktail. Symptoms are not worse with palpation or movement. They did start with coughing this morning. She could potentially have pleurisy. Had a discussion with the patient her regarding the symptoms. Will hold on further workup for now. One dose of pain medication was given here in the emergency department. She will go home and follow up with her primary provider. If her symptoms worsen or do not improve she will return to the emergency department. She expressed understanding and agreement with plan. Discharge Plan Departure Patient Disposition: Home Clinical Impression: Atypical chest pain Instructions: DI for Atypical Chest Pain Activity Restrictions/Additional Instructions: Continue all of your medications as directed. Contact your primary provider for follow-up I did discuss the indications for stress testing. Return to the emergency department for any new or worsening symptoms Prescriptions: No Action cholecalciferol (vitamin D3) [Vitamin D3] 2,000 UNIT tablet 1 tab PO DAILY Qty: 0 RF: 0 zolpidem 5 mg tablet 5 mg PO HSP PRN (Reason: insomnia) Qty: 10 RF: 5 Advair Diskus 250-50 mcg/dose blister with device 1 inhalation INHALATION BID Qty: 60 RF: 5 Myrbetriq 25 mg tablet extended release 24 hr 25 mg PO DAILY Qty: 90 RF: 3 paroxetine HCl 40 mg tablet 40 mg PO QDAY Qty: 90 RF: 3 buspirone 5 mg tablet 5 mg PO BID Qty: 180 RF: 3 Forskolin Extract 300 mg capsule 300 mg PO DAILY RF: 0 atorvastatin 20 mg tablet 20 mg PO HS Qty: 90 RF: 3 cyanocobalamin (vitamin B-12) [Vitamin B-12] 500 MCG tablet 1,500 mcg PO DAILY RF: 0 omeprazole 20 mg capsule,delayed release(DR/EC) 20 mg PO DAILY RF: 0 folic acid 1 mg tablet 1 mg PO DAILY RF: 0 montelukast 10 mg tablet 10 mg PO DAILY RF: 0 irbesartan 150 mg tablet 150 mg PO QPM RF: 0 levothyroxine 112 mcg tablet 112 mcg PO DAILY RF: 0 Fish Oil 1,000 mg PO DAILY RF: 0 potassium chloride 10 mEq tablet extended release 10 meq PO DAILY Qty: 7 RF: 0 lidocaine [Lidoderm] 5 % adhesive patch,medicated 3 patch TOP DAILY Qty: 30 RF: 0 Referrals: Destin Ferrera MD [Primary Care Provider] -
[2019-04-11 17:33] LABS: Add Manual Diff / Slide Review NO; Basophils Absolute Auto 100 /uL (0-100); Basophils Percent Auto 0.7 % (0-2); Eosinophils Absolute Auto 400 /uL (0-450); Eosinophils Percent Auto 3.5 % (2-4); Hematocrit 41.4 % (36-46); Hemoglobin 14.4 g/dL (12.0-16.0); Lymphocytes Absolute Auto 2100 /uL (1100-4500); Lymphocytes Percent Auto 17.8 % (25-40); Mean Corpuscular HGB Conc 34.9 % (30-36); Mean Corpuscular Hemoglobin 30.8 PG (26-34); Mean Corpuscular Volume 88.1 fL (80-100); Monocytes Absolute Auto 1000 /uL (0-900); Monocytes Percent Auto 8.1 % (3-14); Neutrophils Absolute Auto 8300 /uL (1500-7000); Neutrophils Percent Auto 69.9 % (50-75); Platelet Count 228 X10^3/uL (150-400); Red Cell Distribution Width 13.7 % (11.6-14.8); White Blood Cell Count 11.8 X10^3/uL (4.5-11.0)
[2019-04-11 17:36] LABS: Prothrombin Time 11.9 SECONDS (10.1-12.7)
[2019-04-11 17:39] LABS: PTT Partial Thromboplastin Tim 30 SECONDS (26.4-36.2)
[2019-04-11 17:43] LABS: Alanine Aminotransferase 26 IU/L (9-52); Albumin 4.5 g/dL (3.5-5.0); Albumin Globulin Ratio 1.4 (1.0-2.8); Alkaline Phosphatase 106 U/L (38-126); Aspartate Aminotransferase 30 IU/L (15-46); BUN Creatinine Ratio 17.5 (6-22); Bilirubin Total 0.7 mg/dL (0.2-1.3); Blood Urea Nitrogen 14 mg/dL (7-17); Calcium 9.9 mg/dL (8.4-10.2); Carbon Dioxide 27 mmol/L (22-32); Chloride 98 mmol/L (98-107); Creatine Kinase 35 U/L (30-135); Estimated Glomerular Filt Rate > 60.0 mL/min (>60); Globulin 3.3 g/dL (1.7-4.1); Glucose 107 mg/dL (80-110); HEMOLYSIS < 15 (0-50); Lipase 90 U/L (23-300); Sodium 137 mmol/L (137-145); Total Protein 7.8 g/dL (6.3-8.2)
[2019-04-11 17:47] LABS: D Dimer 379 ng/mL (<230)
[2019-04-11 17:55] LABS: Troponin I < 0.012 ng/mL (0.01-0.034)
--- NOTE | 2019-04-11 17:59 | DI.CT.S_ITS ---
PROCEDURE: CT ANGIO CHEST PE PROTOCOL INDICATIONS: Chest pain, shortness of breath, tachycardia TECHNIQUE: After the administration of intravenous contrast, 2 mm thick sections acquired from the pulmonary apices to the posterior costophrenic angles. 3-dimensional maximum intensity projection (MIP) coronal and sagittal reformats were then acquired through the thorax. For radiation dose reduction, the following was used: automated exposure control, adjustment of mA and/or kV according to patient size. COMPARISON: [facility], CR, XR CHEST 1V, 04/11/2019, 17:32. FINDINGS: Image quality: Excellent. Pulmonary arteries: Pulmonary arteries are normal in size, and demonstrate no intraluminal filling defects to suggest central pulmonary embolism. Lungs and pleura: Patchy bilateral lower lobe groundglass opacities more pronounced in the dependent portions. No focal consolidation. No pleural effusions or pneumothorax. Central and peripheral airways are patent with mild perihilar airway thickening. Mediastinum: Heart size is normal, without pericardial effusion. Scattered atherosclerotic calcifications of the coronary arteries are noted. No mediastinal or hilar adenopathy. Thoracic aorta is normal in caliber and enhancement. Esophagus is normal in caliber, without hiatal hernia. Bones and chest wall: No suspicious bony lesions. No acute vertebral body compression fractures. Multilevel spondylitic changes throughout the imaged spine. Ribs and thoracic spine appear intact throughout. Thyroid gland is unremarkable. No axillary or supraclavicular adenopathy. Small hiatal hernia. Abdomen: Visualized upper abdominal solid organs appear normal in the early arterial phase of enhancement. IMPRESSION: 1. No acute pulmonary emboli. 2. Diffuse patchy bilateral lower lobe groundglass opacities predominantly in the dependent portions of the lung bases. Some may be attributed to dependent atelectasis. Concurrent infectious/inflammatory process may have a similar appearance. No focal consolidation. Early pulmonary edema is conceivable if clinically appropriate. 3. Mild perihilar airway thickening which can be seen with bronchitis. Dictated by: Lb Schaefer M.D. on 04/11/2019 at 18:41 Approved by: Lb Schaefer M.D. on 04/11/2019 at 18:50
[2019-04-11] MEDS: SODIUM CHLORIDE 0.9% 1,000 ML 1000 ML IV (18:30)
[2019-04-11 19:05] VITALS: BP 155/75; PULSE 70; RESP 14; O2SAT 98
[2019-04-11] MEDS: MAG HYDROX/ALUMINUM/SIMETH SUS 20 ML, LIDOCAINE VISCOUS 2% 15 ML PO (19:23)
[2019-04-11] MEDS: HYDROCODONE/ACET 5/325 TABLET 1 TAB PO (19:38)
--- NOTE | 2019-04-11 19:58 | PC.NURSE ---
Noted that pt declined hydrocodone after med was scanned. hydrocodone not given and returned. unable to edit AUG.
== END 2019-04-11 19:59 | disposition home or self-care (01) ==
PROVIDERS: Emergency Provider Emergency Medicine; PCP Student in an Organized Health Care Education/Training Program
DX: R07.89 Other chest pain (principal); R06.02 Shortness of breath; R00.0 Tachycardia, unspecified
CPT/HCPCS: 36415; 71045; 71275; 80053; 82550; 83690; 84484; 85025; 85379; 85610; 85730; 93005; 96360; 99283; 99285

== ENCOUNTER → 2019-06-27 14:33 | Outpatient (CLI) | payer MEDICARE, OTHER, SELFPAY ==
[2019-06-27 15:09] LABS: BUN Creatinine Ratio 18.6 (6-22); Blood Urea Nitrogen 13 mg/dL (7-17); Carbon Dioxide 28 mmol/L (22-32); Chloride 101 mmol/L (98-107); Estimated Glomerular Filt Rate > 60.0 mL/min (>60); Glucose 106 mg/dL (80-110); HEMOLYSIS < 15 (0-50); Sodium 139 mmol/L (137-145)
[2019-06-27 16:00] LABS: TSH w/ Reflex to FT4 < 0.02 uIU/mL (0.47-4.68)
[2019-06-27 20:20] LABS: Vitamin B12 > 1000 pg/mL (239-931)
== END ==
PROVIDERS: PCP Student in an Organized Health Care Education/Training Program; Visit Provider Student in an Organized Health Care Education/Training Program
DX: E03.9 Hypothyroidism, unspecified (principal); E87.6 Hypokalemia; I10 Essential (primary) hypertension; R53.83 Other fatigue
CPT/HCPCS: 36415; 80048; 82607; 84439; 84443

== ENCOUNTER → 2019-08-16 11:54 | Outpatient (CLI) | payer MEDICARE, OTHER, SELFPAY ==
[2019-08-16 13:09] LABS: TSH w/ Reflex to FT4 0.25 uIU/mL (0.47-4.68)
== END ==
PROVIDERS: PCP Student in an Organized Health Care Education/Training Program; Referring Provider Student in an Organized Health Care Education/Training Program; Visit Provider Student in an Organized Health Care Education/Training Program
DX: E03.9 Hypothyroidism, unspecified (principal)
CPT/HCPCS: 36415; 84439; 84443

== ENCOUNTER → 2020-01-31 16:32 | Outpatient (CLI) | payer MEDICARE, OTHER, SELFPAY ==
[2020-01-31 17:49] LABS: Hematocrit 37.1 % (36-46); Hemoglobin 12.9 g/dL (12.0-16.0); Mean Corpuscular HGB Conc 34.8 % (30-36); Mean Corpuscular Hemoglobin 30.9 PG (26-34); Mean Corpuscular Volume 88.9 fL (80-100); Platelet Count 253 X10^3/uL (150-400); Red Blood Cell Count 4.17 X10^6/uL (4.0-5.2); Red Cell Distribution Width 13.2 % (11.6-14.8); White Blood Cell Count 7.1 X10^3/uL (4.5-11.0)
[2020-01-31 18:01] LABS: BUN Creatinine Ratio 19.2 (6-22); Blood Urea Nitrogen 14 mg/dL (7-17); Calcium 9.5 mg/dL (8.4-10.2); Carbon Dioxide 28 mmol/L (22-32); Chloride 101 mmol/L (98-107); Estimated Glomerular Filt Rate > 60.0 mL/min (>60); Glucose 93 mg/dL (80-110); HEMOLYSIS < 15 (0-50); Potassium 3.4 mmol/L (3.4-5.1); Sodium 136 mmol/L (137-145)
[2020-01-31 18:18] LABS: Free T4, Direct Thyroxine 1.83 ng/dL (0.78-2.19)
[2020-01-31 18:32] LABS: Thyroid Stimulating Hormone 0.359 uIU/mL (0.47-4.68)
== END ==
PROVIDERS: PCP Student in an Organized Health Care Education/Training Program; Referring Provider Student in an Organized Health Care Education/Training Program; Visit Provider Student in an Organized Health Care Education/Training Program
DX: E03.9 Hypothyroidism, unspecified (principal); G47.00 Insomnia, unspecified; I10 Essential (primary) hypertension; E87.6 Hypokalemia
CPT/HCPCS: 36415; 80048; 84439; 84443; 85027

== ENCOUNTER → 2020-03-07 09:58 | Outpatient (CLI) | payer MEDICARE, OTHER, SELFPAY ==
[2020-03-08 15:51] LABS: COVID19 Sendout Not Detected (Not Detect)
== END ==
PROVIDERS: PCP Student in an Organized Health Care Education/Training Program; Visit Provider Physician Assistant
DX: Z11.59 Encounter for screening for other viral diseases (principal)
CPT/HCPCS: 87635

== ENCOUNTER 2020-03-10 08:53 | Day surgery (SDC) | payer MEDICARE, OTHER, SELFPAY ==
[2020-03-10] MEDS: PROPARACAINE 0.5% OPHTH SOL 2 DROPS EYE-OP (09:55)
[2020-03-10 10:04] VITALS: BP 121/68; PULSE 61; RESP 16; TEMP 36.2; O2SAT 97; BMI 24.0
[2020-03-10] MEDS: CATARACT EYE COMPOUND (10 DROPS/SYRINGE) 3 DROPS EYE-OP (10:18)
--- NOTE | 2020-03-10 10:37 | P.OP_ITS ---
Operative Date/Time/Diagnoses Pre-op diagnosis: Nuclear Cataract Left eye Post-op diagnosis: same Procedure & Clinicians Same procedure as scheduled: Yes Surgeon: Juan Luis Ponce Anesthesia Type: MAC +/- and Sedation Operative Notes Procedure in detail: Patient brought to the operating suite. Tetracaine drops placed in the left eye. Patient was prepped and draped in sterile manner. Wire lid speculum was placed in the eye. Betadine drops were placed on the eye. This was irrigated. Lidocaine jelly was placed on the eye. A paracentesis port was created with a side-port blade. 0.1 mL 1% preservative free lidocaine was injected into the anterior chamber. The anterior chamber was deepened with viscoelastic. 2.6 mm keratome was used to create a temporal clear corneal incision. Cystotome and Utrata forceps were used to create continuous tear capsulorrhexis. Balanced salt solution was used to hydro dissect the nucleus. The phacoemulsification handpiece was inserted and the nucleus was removed using the stop and chop technique. The irrigation aspiration handpiece was inserted and the remaining cortex was removed. Anterior chamber was deepened with viscoe lastic. An Finley ZCB00 intraocular lens with a power of 21.5 was injected into the capsular bag. Irrigation aspiration handpiece was inserted and the remaining viscoelastic was removed. Incision was hydrated with balanced salt solution and found to be leak free with pressure with Weck-Lizbet sponges. 0.1 mL Vigamox injected anterior chamber. 0.3 mL Kenalog 10 mg was injected subconjunctivally. Lid speculum was removed. The patient left the operating room in excellent condition. Complications: none Post-operative Condition: stable Disposition: same day surgery
--- NOTE | 2020-03-10 10:37 | PM.PREOP ---
Pre-operative Note Interval Note History & Physical reviewed/Exam performed by Physician: Yes Changes to H&P: No
[2020-03-10] MEDS: CHONDROIDTIN/SOD HYALURONATE 1.05 ML SYRINGE INTRAOCULA (11:07)
[2020-03-10] MEDS: LIDOCAINE JELLY 2% 5 ML 1 APPLIC TOP (11:07)
[2020-03-10] MEDS: MOXIFLOXACIN INJ 5 MG/ML VIAL EYE-OP (11:07)
[2020-03-10] MEDS: PHENYLEPHRINE/LIDOCAINE VIAL (OR) 0.2 ML EYE-OP (11:08)
[2020-03-10] MEDS: TETRACAINE 0.5% OPHTH DROPS 4 ML 2 DROPS EYE-OP (11:08)
[2020-03-10] MEDS: TRIAMCINOLONE 50 MG/5 ML VIAL INJ (11:08)
[2020-03-10] MEDS: BALANCED SALT IRRIG SOLN NO.2 500 ML, EPINEPHrine 1 MG IRR (11:08)
[2020-03-10 11:20] VITALS: BP 115/68; PULSE 64; RESP 16; TEMP 36.6; O2SAT 99
== END 2020-03-10 11:35 | disposition home or self-care (01) ==
PROVIDERS: PCP Student in an Organized Health Care Education/Training Program; Referring Provider Ophthalmology; Visit Provider Ophthalmology
PROC: (CPT 66984; principal; 2020-03-10 10:45)
DX: H25.12 Age-related nuclear cataract, left eye (principal); J45.909 Unspecified asthma, uncomplicated; I10 Essential (primary) hypertension
CPT/HCPCS: 66984; J0171; J2250; J3301

== ENCOUNTER → 2020-04-28 15:29 | Outpatient (CLI) | payer MEDICARE, OTHER, SELFPAY ==
[2020-04-28 16:06] LABS: COVID19 -Nasal RAPID Negative (Negative)
== END ==
PROVIDERS: PCP Student in an Organized Health Care Education/Training Program; Visit Provider Physician Assistant
DX: R05 Cough (principal); R52 Pain, unspecified
CPT/HCPCS: 87635

== ENCOUNTER → 2020-05-08 13:01 | Outpatient (CLI) | payer MEDICARE, OTHER, SELFPAY ==
--- NOTE | 2020-05-08 | DI.RAD.S_ITS ---
PROCEDURE: FL WRIST INJECTION MR/CT LT INDICATIONS: Displaced fracture of left radial styloid process COMPARISON: [facility], MR, MR WRIST LT W CON, 05/08/2020, 14:09. TECHNIQUE: After informed consent had been obtained, the wrist was examined fluoroscopically, and a site chosen for injection of the radiocarpal compartment from a dorsal approach. Skin was prepped and draped in a sterile fashion and 1% lidocaine infiltrated from the skin down to the articular surface. A hypodermic needle was then introduced into the articular space and a modest amount of contrast medium was instilled confirming intra-articular needle tip placement. This was followed by approximately 4 mL of a dilute gadolinium solution. Needle was removed and dressing was applied. The patient experienced no complications throughout the procedure and left the fluoroscopic suite in no apparent distress. FINDINGS: A single fluoroscopic spot image demonstrates intra-articular location to injected iodinated contrast. IMPRESSION: Successful fluoroscopic-guided administration of dilute Gadolinium solution for wrist MR arthrogram. Dictated by: Prabhakar Gregory M.D. on 05/08/2020 at 16:27 Approved by: Prabhakar Gregory M.D. on 05/08/2020 at 16:29
--- NOTE | 2020-05-08 | DI.MRI.S_ITS ---
PROCEDURE: MR WRIST LT W CON INDICATIONS: Displaced fracture of left radial styloid process TECHNIQUE: After the administration of 3-4 mL of dilute intra-articular Gadolinium contrast into the radiocarpal compartment, coronal T1 spin echo with fat saturation and T2 fast spin echo with fat saturation, axial T1 spin echo and T2 fast spin echo with fat saturation, sagittal T1 spin echo with and without fat saturation through the wrist. COMPARISON: [facility], CR, XR WRIST 3+ VIEWS LEFT, 02/28/2020, 14:00. [facility], CR, XR WRIST 3+ VIEWS LEFT, 04/27/2020, 16:41. FINDINGS: Image quality: Degraded by patient motion artifact. Bones and cartilage: The carpal bones are normally aligned. No bone marrow contusions or fractures. No evidence for avascular necrosis. Severe osteoarthritic degenerative changes noted in the 1st CMC joint. Subchondral cyst formation and subchondral reactive edema noted in the proximal lunate suspicious for ulnar impaction. Radiocarpal joint synovial thickening compatible with synovitis. Carpal ligaments: Small tear involving the dorsal aspect of the scapholunate ligament with extravasation of contrast material into the midcarpal row. The lunotriquetral ligament appears intact, without gadolinium extravasation into the mid-carpal compartment. The radioscaphocapitate and radiolunotriquetral ligaments appear intact. The arcuate ligament and short radiolunate ligament also appear normal. The dorsal intercarpal and radiotriquetral ligaments appear intact. On sagittal images, the pisohamate ligament appears intact. Triangular fibrocartilage complex: The triangular fibrocartilage disc, with its styloid and foveal lamina, appears intact. No gadolinium extravasation into the distal radioulnar joint. The adjacent meniscal homolog appears normal. The ulnar collateral ligament appears intact. The extensor carpi ulnaris tendon is normal in location and morphology. Tendons and soft tissues: The carpal tunnel structures appear normal, including the median nerve. The ulnar nerve appears normal within Guyon's canal. Fluid is noted in the extensor tendon sheath distal to the carpal tunnel compatible with tenosynovitis. All six extensor tendon compartments demonstrate normal morphology, without pathologic tendon sheath fluid. No soft tissue ganglion cysts. IMPRESSION: 1. Partial tear of the dorsal aspect of the scapholunate ligament. 2. Radiocarpal joint synovitis. 3. Severe 1st CMC joint osteoarthritis. 4. Subchondral formation in the edema involving the proximal lunate suspicious for ulnar impaction. 5. Flexor tenosynovitis. 6. No fracture. Dictated by: Mana Garcia MD, PhD on 05/08/2020 at 15:48 Approved by: Mana Garcia MD, PhD on 05/11/2020 at 12:55
== END ==
PROVIDERS: PCP Student in an Organized Health Care Education/Training Program; Referring Provider Orthopaedic Surgery; Visit Provider Orthopaedic Surgery
DX: S52.512A Displaced fracture of left radial styloid process, initial encounter for closed fracture (principal); M65.4 Radial styloid tenosynovitis [de Quervain]; M19.032 Primary osteoarthritis, left wrist
CPT/HCPCS: 20605; 73222; 76000

== ENCOUNTER → 2020-08-15 09:40 | Outpatient (CLI) | payer OTHER, SELFPAY ==
--- NOTE | 2020-08-15 | DI.MG.S_ITS ---
BILATERAL DIGITAL SCREENING MAMMOGRAM 3D/2D WITH CAD: 08/15/2020 CLINICAL: Routine screening. Comparison is made to exam dated: 11/07/2017 [facility]. There are scattered fibroglandular elements in both breasts. Current study was also evaluated with a Computer Aided Detection (CAD) system. No significant masses, calcifications, or other findings are seen in either breast. There has been no significant interval change. IMPRESSION: NEGATIVE There is no mammographic evidence of malignancy. A 1 year screening mammogram is recommended. This exam was interpreted at Station ID: [id number]. NOTE: For mammograms, a report in lay terms will be sent to the patient. Approximately 15% of breast malignancies will not be visualized mammographically. In the management of a palpable breast mass, a negative mammogram must not discourage biopsy of a clinically suspicious lesion. Electronically Signed By: Lb polanco/manda:08/17/2020 08:06:13 letter sent: Normal Exam ACR BI-RADS Category 1: Negative 3341F
== END ==
PROVIDERS: PCP Student in an Organized Health Care Education/Training Program; Referring Provider Student in an Organized Health Care Education/Training Program; Visit Provider Student in an Organized Health Care Education/Training Program
DX: Z12.31 Encounter for screening mammogram for malignant neoplasm of breast (principal)
CPT/HCPCS: 77063; 77067

== ENCOUNTER → 2020-09-04 13:26 | Outpatient (CLI) | payer MEDICARE, OTHER, SELFPAY ==
[2020-09-04] MEDS: COVID-19 VACC #1, MRNA(MOD) 100 MCG/0.5 ML VIAL IM (13:38)
== END ==
PROVIDERS: PCP Student in an Organized Health Care Education/Training Program; Visit Provider Internal Medicine
DX: Z23 Encounter for immunization (principal)
CPT/HCPCS: 0011A; 91301

== ENCOUNTER → 2020-10-02 13:19 | Outpatient (CLI) | payer MEDICARE, OTHER, SELFPAY ==
[2020-10-02] MEDS: COVID-19 VACC #2, MRNA(MOD) 100 MCG/0.5 ML VIAL IM (13:33)
== END ==
PROVIDERS: PCP Student in an Organized Health Care Education/Training Program; Visit Provider Internal Medicine
DX: Z23 Encounter for immunization (principal)
CPT/HCPCS: 0012A; 91301

== ENCOUNTER → 2021-02-16 15:10 | Outpatient (CLI) | payer OTHER, SELFPAY ==
[2021-02-16 15:26] LABS: Hematocrit 38.2 % (36-46); Hemoglobin 13.2 g/dL (12.0-16.0); Mean Corpuscular HGB Conc 34.5 % (30-36); Mean Corpuscular Hemoglobin 31.9 PG (26-34); Mean Corpuscular Volume 92.5 fL (80-100); Platelet Count 239 X10^3/uL (150-400); Red Blood Cell Count 4.14 X10^6/uL (4.0-5.2); Red Cell Distribution Width 13.5 % (11.6-14.8); White Blood Cell Count 7.6 X10^3/uL (4.5-11.0)
[2021-02-16 15:53] LABS: Alanine Aminotransferase 20 IU/L (<35); Albumin Globulin Ratio 1.3 (1.0-2.8); Alkaline Phosphatase 72 U/L (38-126); Aspartate Aminotransferase 31 IU/L (14-36); Bilirubin Total 0.5 mg/dL (0.2-1.3); Blood Urea Nitrogen 17 mg/dL (7-17); Calcium 9.4 mg/dL (8.4-10.2); Carbon Dioxide 31 mmol/L (22-32); Chloride 102 mmol/L (98-107); Estimated Glomerular Filt Rate > 60.0 mL/min (>60); Glucose 108 mg/dL (80-110); HEMOLYSIS < 15 (0-50); Potassium 4.2 mmol/L (3.4-5.1); Sodium 139 mmol/L (137-145)
[2021-02-16 16:23] LABS: TSH w/ Reflex to FT4 0.73 uIU/mL (0.47-4.68)
== END ==
PROVIDERS: PCP Student in an Organized Health Care Education/Training Program; Referring Provider Student in an Organized Health Care Education/Training Program; Visit Provider Student in an Organized Health Care Education/Training Program
DX: M35.3 Polymyalgia rheumatica (principal); I10 Essential (primary) hypertension; F19.20 Other psychoactive substance dependence, uncomplicated; E87.6 Hypokalemia; Z79.899 Other long term (current) drug therapy; E03.9 Hypothyroidism, unspecified
CPT/HCPCS: 36415; 80053; 84443; 85027

== ENCOUNTER → 2021-05-19 09:08 | Outpatient (CLI) | payer OTHER, SELFPAY | PROVIDERS: PCP Student in an Organized Health Care Education/Training Program; Visit Provider Physician Assistant | DX: R30.9 Painful micturition, unspecified (principal) | CPT/HCPCS: 87086 ==

== ENCOUNTER → 2021-06-02 08:24 | Outpatient (CLI) | payer OTHER, SELFPAY ==
[2021-06-02 11:48] LABS: COVID19 -Nasal RAPID Negative (Negative)
== END ==
PROVIDERS: PCP Student in an Organized Health Care Education/Training Program; Visit Provider Physician Assistant
DX: Z20.822 Contact with and (suspected) exposure to COVID-19 (principal); J02.9 Acute pharyngitis, unspecified; R19.7 Diarrhea, unspecified; R52 Pain, unspecified
CPT/HCPCS: 87635

== ENCOUNTER → 2021-07-02 12:22 | Outpatient (CLI) | payer OTHER, SELFPAY ==
[2021-07-02 19:21] LABS: COVID19 -Nasal RAPID Negative (Negative)
== END ==
PROVIDERS: PCP Student in an Organized Health Care Education/Training Program; Visit Provider Nurse Practitioner Family
DX: Z20.822 Contact with and (suspected) exposure to COVID-19 (principal); R19.7 Diarrhea, unspecified
CPT/HCPCS: 87635

== ENCOUNTER → 2021-08-02 14:25 | Outpatient (CLI) | payer OTHER, SELFPAY ==
--- NOTE | 2021-08-02 14:30 | DI.RAD.S_ITS ---
P to the ROCEDURE: XR HIP W PEL IF DONE LT 2V INDICATIONS: hip pain after injury TECHNIQUE: AP pelvis with lateral view of the left hip. COMPARISON: [facility], CR, XR PELVIS WITH LATERAL HIP LEFT, 02/28/2020, 14:09. FINDINGS: Bones: No fractures or dislocations. Pelvic ring appears intact. There is mild axial joint space narrowing in the hips bilaterally with mild subchondral sclerosis. Moderate collar osteophytosis also present. No suspicious bony lesions. Soft tissues: The visualized bowel gas pattern is normal. No suspicious soft tissue calcifications. IMPRESSION: 1. No fracture or dislocation. 2. 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 Dictated by: Dano Hinton M.D. on 08/03/2021 at 9:54 Approved by: Dano Hinton M.D. on 08/03/2021 at 9:55
[2021-08-02 15:50] LABS: BUN Creatinine Ratio 14.3 (6-22); Blood Urea Nitrogen 12 mg/dL (7-17); C-Reactive Protein Quant < 0.5 mg/dL (<1.0); Creatine Kinase 35 U/L (30-135); Estimated Glomerular Filt Rate > 60.0 mL/min (>60)
[2021-08-02 16:56] LABS: Erythrocyte Sedimentation Rate 18 MM/HR (0-20)
== END ==
PROVIDERS: PCP Student in an Organized Health Care Education/Training Program; Referring Provider Student in an Organized Health Care Education/Training Program; Visit Provider Student in an Organized Health Care Education/Training Program
DX: M35.3 Polymyalgia rheumatica (principal)
CPT/HCPCS: 36415; 73502; 82550; 82565; 84520; 85651; 86140

== ENCOUNTER → 2021-08-08 12:09 | Outpatient (CLI) | payer OTHER, SELFPAY | PROVIDERS: PCP Student in an Organized Health Care Education/Training Program; Visit Provider Physician Assistant | DX: R30.0 Dysuria (principal) | CPT/HCPCS: 87077; 87086; 87186 ==

== ENCOUNTER → 2021-09-10 17:45 | Outpatient (CLI) | payer OTHER, SELFPAY | PROVIDERS: PCP Student in an Organized Health Care Education/Training Program; Visit Provider Physician Assistant | DX: R30.0 Dysuria (principal) | CPT/HCPCS: 87077; 87086; 87186 ==

== ENCOUNTER 2021-10-09 13:57 | Emergency (ER) | payer MEDICARE, OTHER, SELFPAY | END 2021-10-09 14:59 | disposition left against medical advice (07) | PROVIDERS: Emergency Provider Emergency Medicine; PCP Student in an Organized Health Care Education/Training Program | DX: Z53.21 Procedure and treatment not carried out due to patient leaving prior to being seen by health care provider (principal) ==

== ENCOUNTER → 2022-02-15 10:59 | Outpatient (CLI) | payer OTHER, SELFPAY | PROVIDERS: PCP Student in an Organized Health Care Education/Training Program; Visit Provider Physician Assistant | DX: N39.0 Urinary tract infection, site not specified (principal) | CPT/HCPCS: 87077; 87086; 87186 ==

== ENCOUNTER → 2022-02-24 08:23 | Outpatient (CLI) | payer OTHER, SELFPAY ==
[2022-02-24 09:19] LABS: Add Manual Diff / Slide Review NO; Basophils Absolute Auto 0 /uL (0-100); Basophils Percent Auto 0.7 % (0-2); Eosinophils Absolute Auto 200 /uL (0-450); Eosinophils Percent Auto 2.7 % (2-4); Hematocrit 39.2 % (36-46); Hemoglobin 13.5 g/dL (12.0-16.0); Lymphocytes Absolute Auto 2400 /uL (1100-4500); Lymphocytes Percent Auto 34.8 % (25-40); Mean Corpuscular HGB Conc 34.3 % (30-36); Mean Corpuscular Hemoglobin 31.3 PG (26-34); Monocytes Absolute Auto 700 /uL (0-900); Monocytes Percent Auto 9.8 % (3-14); Neutrophils Absolute Auto 3600 /uL (1500-7000); Platelet Count 196 X10^3/uL (150-400); Red Blood Cell Count 4.31 X10^6/uL (4.0-5.2); Red Cell Distribution Width 13.5 % (11.6-14.8); White Blood Cell Count 6.9 X10^3/uL (4.5-11.0)
[2022-02-24 09:33] LABS: Alanine Aminotransferase 23 IU/L (<35); Albumin 4.3 g/dL (3.5-5.0); Albumin Globulin Ratio 1.3 (1.0-2.8); Alkaline Phosphatase 71 U/L (38-126); Aspartate Aminotransferase 27 IU/L (14-36); BUN Creatinine Ratio 20.7 (6-22); Bilirubin Total 0.7 mg/dL (0.2-1.3); Blood Urea Nitrogen 19 mg/dL (7-17); Calcium 9.5 mg/dL (8.4-10.2); Carbon Dioxide 30 mmol/L (22-32); Chloride 102 mmol/L (98-107); Cholesterol 240 mg/dL (140-199); Estimated Glomerular Filt Rate > 60 mL/min (>60); Globulin 3.4 g/dL (1.7-4.1); Glucose 90 mg/dL (80-110); HDL Cholesterol 54 mg/dL (40-60); HEMOLYSIS < 15 (0-50); LDL Cholesterol Calculated 149 mg/dL (<100); Potassium 3.6 mmol/L (3.4-5.1); Sodium 140 mmol/L (137-145); Total Protein 7.7 g/dL (6.3-8.2); Triglycerides 185 mg/dL (35-150)
[2022-02-24 09:39] LABS: HEMOLYSIS < 15 (0-50); Iron 137 ug/dL (37-170)
[2022-02-24 09:50] LABS: Percent Iron Saturation 50 % (15-50); Total Iron Binding Capacity 272 ug/dL (265-497); Transferrin 202 mg/dL (206-381)
[2022-02-24 10:10] LABS: TSH w/ Reflex to FT4 4.27 uIU/mL (0.47-4.68)
== END ==
PROVIDERS: PCP Student in an Organized Health Care Education/Training Program; Referring Provider Student in an Organized Health Care Education/Training Program; Visit Provider Student in an Organized Health Care Education/Training Program
DX: E03.9 Hypothyroidism, unspecified (principal); E78.2 Mixed hyperlipidemia; E87.6 Hypokalemia; I10 Essential (primary) hypertension; M35.3 Polymyalgia rheumatica; N39.41 Urge incontinence; E61.1 Iron deficiency
CPT/HCPCS: 36415; 80053; 80061; 83540; 83550; 84443; 85025

== ENCOUNTER → 2022-03-30 11:12 | Outpatient (CLI) | payer OTHER, SELFPAY ==
--- NOTE | 2022-03-30 11:14 | DI.MG.S_ITS ---
BILATERAL DIGITAL DIAGNOSTIC MAMMOGRAM 3D/2D: 03/30/2022 CLINICAL: Pain right breast. Comparison is made to exams dated: 08/15/2020 mammogram and 11/07/2017 mammogram - [facility]. There are scattered areas of fibroglandular density in both breasts (category b / 25%-50% glandular tissue). No significant masses, calcifications, or other findings are seen in either breast. IMPRESSION: INCOMPLETE: NEEDS ADDITIONAL IMAGING EVALUATION No mammographic evidence of malignancy. A targeted ultrasound is recommended and will immediately follow. Based on the Tyrer Cuzick model (a risk assessment model) the patient's lifetime risk is 1.1% and her 10 year risk is 0.0%. According to the ACR, ACS, and NCCN guidelines, an annual breast MRI exam along with mammogram is recommended if the patient's lifetime risk is 20% or greater. This exam was interpreted at Station ID: [id number]. NOTE: For mammograms, a report in lay terms will be sent to the patient. Approximately 15% of breast malignancies will not be visualized mammographically. In the management of a palpable breast mass, a negative mammogram must not discourage biopsy of a clinically suspicious lesion. Electronically Signed By: Manoj Farris M.D. slc/:03/30/2022 12:45:49 ACR BI-RADS Category 0: Incomplete 3340F
--- NOTE | 2022-03-30 11:14 | DI.US.S_ITS ---
LIMITED ULTRASOUND OF RIGHT BREAST: 03/30/2022 CLINICAL: Focal right breast pain. Comparison is made to exams dated: 03/30/2022 mammogram, 08/15/2020 mammogram, and 11/07/2017 mammogram - [facility]. Color flow and real-time ultrasound of the right breast lower outer quadrant were performed. Sofia scale images of the real-time examination were reviewed. No mass. Curvilinear area of fibroglandular tissue in the left breast 9:00 anterior depth. No posterior acoustic shadowing. IMPRESSION: NEGATIVE There is no sonographic evidence of malignancy. No mass seen in the region of pain. Exam findings were conveyed to the patient. Patient is advised to monitor for significant change. Clinical follow-up as needed. A 1 year screening mammogram is recommended. This exam was interpreted at Station ID: [id number]. Electronically Signed By: Manoj Farris M.D. slc/:03/30/2022 13:32:42 letter sent: Normal Exam Ultrasound BI-RADS: 1 Negative
== END ==
PROVIDERS: PCP Student in an Organized Health Care Education/Training Program; Referring Provider Student in an Organized Health Care Education/Training Program; Visit Provider Student in an Organized Health Care Education/Training Program
DX: R92.2 Inconclusive mammogram (principal); M85.852 Other specified disorders of bone density and structure, left thigh; N64.4 Mastodynia; Z78.0 Asymptomatic menopausal state; Z90.710 Acquired absence of both cervix and uterus
CPT/HCPCS: 76642; 77066; 77080; G0279

== ENCOUNTER → 2022-04-01 17:25 | Outpatient (CLI) | payer OTHER, SELFPAY | PROVIDERS: PCP Student in an Organized Health Care Education/Training Program; Visit Provider Registered Nurse | DX: R30.0 Dysuria (principal) | CPT/HCPCS: 87077; 87086; 87186 ==

== ENCOUNTER → 2022-05-23 11:02 | Outpatient (CLI) | payer OTHER, SELFPAY ==
[2022-05-23 13:17] LABS: COVID19 -Nasal RAPID Negative (Negative)
== END ==
PROVIDERS: PCP Student in an Organized Health Care Education/Training Program; Visit Provider Surgery
DX: Z20.822 Contact with and (suspected) exposure to COVID-19 (principal); Z01.812 Encounter for preprocedural laboratory examination
CPT/HCPCS: 87635; C9803

== ENCOUNTER → 2022-05-26 12:21 | Outpatient (CLI) | payer OTHER, SELFPAY | PROVIDERS: PCP Student in an Organized Health Care Education/Training Program; Visit Provider Nurse Practitioner Family | DX: N39.0 Urinary tract infection, site not specified (principal) | CPT/HCPCS: 87077; 87086; 87186 ==

== ENCOUNTER → 2022-06-17 15:39 | Outpatient (CLI) | payer OTHER, SELFPAY | PROVIDERS: PCP Student in an Organized Health Care Education/Training Program; Visit Provider Student in an Organized Health Care Education/Training Program | DX: N39.0 Urinary tract infection, site not specified (principal) | CPT/HCPCS: 87086 ==

== ENCOUNTER → 2022-06-29 13:39 | Outpatient (CLI) | payer OTHER, SELFPAY ==
[2022-06-29 15:15] LABS: Cholesterol 146 mg/dL (140-199); HDL Cholesterol 51 mg/dL (40-60); LDL Cholesterol Calculated 73 mg/dL (<100); Triglycerides 111 mg/dL (35-150)
== END ==
PROVIDERS: PCP Student in an Organized Health Care Education/Training Program; Referring Provider Student in an Organized Health Care Education/Training Program; Visit Provider Student in an Organized Health Care Education/Training Program
DX: E78.2 Mixed hyperlipidemia (principal)
CPT/HCPCS: 36415; 80061

== ENCOUNTER 2022-08-09 07:44 | Day surgery (SDC) | payer MEDICARE, OTHER, SELFPAY ==
[2022-08-09] MEDS: FLEETS ENEMA 1 EACH PR (08:02)
[2022-08-09 08:22] VITALS: BMI 24.5
[2022-08-09 08:23] VITALS: BP 121/71; PULSE 61; RESP 14; TEMP 36.2; O2SAT 98
[2022-08-09] MEDS: LACTATED RINGERS 1,000 ML 200 ML IV (08:30)
--- NOTE | 2022-08-09 09:05 | PM.HP.1 ---
History of Present Illness History of Present Illness Date Patient Seen: 08/09/22 Time Patient Seen: 09:05 Chief complaint: DX Colonoscopy Narrative: 76-year-old woman here for diagnostic colonoscopy for altered bowel function. She continues to alternating constipation and diarrhea. Please refer to the H and P from April 2022 for further detail. No interval changes in health. Patient History Medical History Asthma Facet arthropathy of spine Hypothyroidism Multiple benign nevi Osteopenia after menopause Seborrheic keratoses Spinal stenosis, lumbar Spine pain, lumbosacral Tear of medial meniscus of right knee (03/2016) Surgical History History of appendectomy History of arthroplasty of right knee History of hysterectomy S/P arthroscopic partial medial meniscectomy (09/06/16) Family & Social History Social History: household members spouse lives independently Yes Tobacco & Substance use: Smoking Status Never smoker alcohol intake never alcohol intake frequency holiday/special occasion Substance Use Type does not use Meds Home Medications and Allergies Home Medications Medication Instructions Recorded Confirmed Type cholecalciferol (vitamin D3) 50 1 tab PO DAILY ##0 10/17/16 08/09/22 History mcg (2,000 unit) tablet (Vitamin D3) Forskolin Extract 300 mg PO DAILY 11/21/18 07/04/22 History Fish Oil 1,000 mg PO DAILY 04/11/19 07/04/22 History cyanocobalamin (vitamin B-12) 500 1,500 mcg PO DAILY 04/11/19 08/09/22 History mcg tablet (Vitamin B-12) albuterol sulfate 90 mcg/actuation 2 puff inhalation Q6H PRN 09/26/19 08/09/22 Rx aerosol inhaler shortness of breath or wheezing #6.7 grams fluticasone 250 mcg-salmeterol 50 1 inh inhalation BID #60 doses 06/30/20 07/04/22 Rx mcg/dose blistr powdr for inhalation (Advair Diskus) Myrbetriq 50 mg tablet,extended 50 mg PO DAILY PRN Urinary leakage 04/27/21 08/09/22 Rx release (mirabegron) #90 tabs levothyroxine 100 mcg tablet 100 mcg PO DAILY #90 tabs 10/11/21 08/09/22 Rx omeprazole 20 mg capsule,delayed 20 mg PO DAILY #90 caps 10/11/21 08/09/22 Rx release hydrochlorothiazide 12.5 mg capsule 12.5 mg PO DAILY #90 caps 03/21/22 08/09/22 Rx zolpidem 5 mg tablet 5 mg PO HSP PRN insomnia #10 tabs 03/21/22 08/09/22 Rx triamcinolone acetonide 0.1 % 1 applic topical BID Atopic 04/18/22 08/09/22 Rx topical cream dermatitis #30 grams atorvastatin 40 mg tablet 40 mg PO BEDTIME #90 tabs 04/19/22 08/09/22 Rx folic acid 1 mg tablet 1 mg PO DAILY #90 tabs 04/19/22 08/09/22 Rx paroxetine HCl 40 mg tablet 40 mg PO QDAY #90 tabs 04/19/22 08/09/22 Rx sodium sul 1.479 gram-potas ch See Rx Instructions PO PER PKG DIR 05/06/22 07/04/22 Rx 0.188 gram-magnes sul 0.225 gram #24 tabs tablet (Sutab) irbesartan 150 mg tablet 150 mg PO QPM #90 tabs 05/26/22 08/09/22 Rx montelukast 10 mg tablet 10 mg PO DAILY #90 tabs 05/26/22 08/09/22 Rx potassium chloride 10 mEq 10 meq PO DAILY low potassium #90 07/06/22 08/09/22 Rx tablet,extended release tabs prednisone 1 mg tablet 1 mg PO DAILY 08/01/22 08/09/22 History Allergies Allergy/AdvReac Type Severity Reaction Status Date / Time latex Allergy Rash Verified 08/09/22 08:15 Exam Vital Signs (past 8 hours): - 08/09/22 08:23 Temperature 97.1 F L Pulse Rate 61 Respiratory Rate 14 Blood Pressure 121/71 Pulse Oximetry 98 Oxygen Delivery Method Room Air Oxygen Delivery Method Room Air Narrative Exam Narrative: General adult woman alert oriented no distress Assessment & Plan Assessment and plan (1) Change in bowel habits: Status: Acute Assessment & Plan narrative: 76-year-old woman here for diagnostic colonoscopy as result altered bowel function. Technical details were discussed. Risks, benefits, alternatives explained. Risks including but not limited to myocardial infarction, aspiration, bleeding, pain, missed lesion, incomplete examination, need for further radiographic studies, colonic perforation, and need for major abdominal surgery were discussed. All questions were answered to their satisfaction, and they are in agreement with this plan. Time Spent With Patient Critical Care time: I spent a total of [] minutes of critical care time on this patient's care today; this time is exclusive of procedural time.
[2022-08-09 09:25] VITALS: BP 93/51; PULSE 52; RESP 14; TEMP 36.1; O2SAT 94
[2022-08-09 09:31] VITALS: BP 101/57; PULSE 56; RESP 15; O2SAT 98
[2022-08-09 09:35] VITALS: BP 101/57; PULSE 56; RESP 14; O2SAT 98
--- NOTE | 2022-08-09 09:35 | PM.OP.COLON ---
Operative Date/Time/Diagnoses Date of procedure: 08/09/22 Time of procedure: 09:35 Pre-op diagnosis: Altered bowel function Post-op diagnosis: same Procedure & Clinicians Study performed: Aborted colonoscopy Same procedure as scheduled: Yes Indications: Altered bowel habit Surgeon: Rajinder Whitley Procedure Notes Procedure in detail: The history and physical was performed/updated and the patient is ASA class is 2. The procedure was discussed in detail with the patient. Potential risks complications including infection, bleeding, missed diagnosis, perforation, need for surgery, and were explained. Their questions were answered and informed consent was obtained. Patient was brought to the procedure room and placed standard monitoring equipment. The patient's vital signs were monitored continuously throughout the entire procedure. Prior to starting time-out was performed. The patient was placed in the left lateral recumbent position. Procedural sedation was administered by anesthesia. Examination began with a thorough inspection of the perianal area there was no evidence of fissures, fistulae, external hemorrhoids or cutaneous malignancy. The colonoscopy scope was then placed into the anal canal and was advanced forward. The quality of the colonic preparation was poor. Despite irrigation the preparation remain inadequate for safe performance of the procedure was therefore aborted. Post-procedure Recommendations: High fiber diet Plan for aftercare: Reschedule colonoscopy with an alternative prep and 2 days of clear liquid diet Disposition: same day surgery
[2022-08-09 09:40] VITALS: BP 110/74; PULSE 61; RESP 14; TEMP 36.4; O2SAT 98
== END 2022-08-09 09:50 | disposition home or self-care (01) ==
PROVIDERS: PCP Student in an Organized Health Care Education/Training Program; Referring Provider Surgery; Visit Provider Surgery
PROC: 0DJD8ZZ Inspection of Lower Intestinal Tract, Via Natural or Artificial Opening Endoscopic (ICD-10-PCS; CPT 45378; principal; 2022-08-09 09:00)
DX: K59.00 Constipation, unspecified (principal); R19.7 Diarrhea, unspecified; Z53.09 Procedure and treatment not carried out because of other contraindication
CPT/HCPCS: 45378; J2704

== ENCOUNTER → 2022-11-15 13:20 | Outpatient (CLI) | payer MEDICARE, OTHER, SELFPAY ==
[2022-11-15 14:37] LABS: Hematocrit 38.7 % (36-46); Hemoglobin 13.5 g/dL (12.0-16.0); Mean Corpuscular HGB Conc 34.8 % (30-36); Mean Corpuscular Hemoglobin 32.1 PG (26-34); Mean Corpuscular Volume 92.2 fL (80-100); Platelet Count 202 X10^3/uL (150-400); Red Cell Distribution Width 12.8 % (11.6-14.8); White Blood Cell Count 6.1 X10^3/uL (4.5-11.0)
[2022-11-15 14:48] LABS: Alanine Aminotransferase 24 IU/L (<35); Albumin 4.4 g/dL (3.5-5.0); Albumin Globulin Ratio 1.4 (1.0-2.8); Alkaline Phosphatase 91 U/L (38-126); Aspartate Aminotransferase 28 IU/L (14-36); BUN Creatinine Ratio 19.8 (6-22); Bilirubin Total 0.5 mg/dL (0.2-1.3); Blood Urea Nitrogen 16 mg/dL (7-17); Calcium 9.7 mg/dL (8.4-10.2); Carbon Dioxide 31 mmol/L (22-32); Chloride 101 mmol/L (98-107); Cholesterol 137 mg/dL (140-199); Estimated Glomerular Filt Rate > 60 mL/min (>60); Globulin 3.1 g/dL (1.7-4.1); Glucose 130 mg/dL (80-110); HDL Cholesterol 51 mg/dL (40-60); HEMOLYSIS < 15 (0-50); LDL Cholesterol Calculated 61 mg/dL (<100); Potassium 4.9 mmol/L (3.4-5.1); Sodium 138 mmol/L (137-145); Total Protein 7.5 g/dL (6.3-8.2); Triglycerides 127 mg/dL (35-150)
[2022-11-15 15:52] LABS: Free T4, Direct Thyroxine 1.75 ng/dL (0.78-2.19)
== END ==
PROVIDERS: PCP Internal Medicine; Referring Provider Internal Medicine; Visit Provider Internal Medicine
DX: I10 Essential (primary) hypertension (principal); E78.2 Mixed hyperlipidemia; E03.9 Hypothyroidism, unspecified
CPT/HCPCS: 36415; 80053; 80061; 84439; 84443; 85027

== ENCOUNTER → 2022-11-30 09:21 | Outpatient (CLI) | payer MEDICARE, OTHER, SELFPAY ==
--- NOTE | 2022-11-30 09:22 | DI.US.S_ITS ---
PROCEDURE: US ABDOMEN COMPLETE INDICATIONS: BLOATING TECHNIQUE: Real-time scanning was performed of the abdominal and retroperitoneal organs, with image documentation. COMPARISON: [facility], , US ABDOMEN LIMITED, 12/25/2018, 15:36. FINDINGS: Liver: The liver is normal size measuring 12.2 cm in length. The echotexture is homogeneous and mildly hyperechoic. No discrete mass. Gallbladder: The gallbladder is normal without stones, sludge, wall thickening, or pericholecystic fluid. Biliary ducts: Intrahepatic bile ducts are non-dilated. Extrahepatic bile duct caliber measures four mm. Normal is 6-7 mm or less in diameter, or 10 mm or less post-cholecystectomy. Pancreas: Visualized portions of the pancreas are sonographically normal. Spleen: Spleen is normal in size and homogeneous in echotexture. Kidneys: Both kidneys are decreased in size, cortical thickness, and demonstrate prominence of the renal sinus fat. Cortical echogenicity remains normal. No hydronephrosis or nephrolithiasis. Aorta: Visualized aorta is normal in caliber at less than 3 cm. Iliacs: Proximal common iliac arteries are normal in caliber at less than 2.5 cm. IVC: Intrahepatic inferior vena cava is patent. Miscellaneous: No free abdominal fluid. IMPRESSION: 1. Normal gallbladder. 2. Mild, chronic appendix steatosis. 3. Decreased renal size may be secondary to body habitus, senescent changes, or vascular insufficiency. Dictated by: Mayelin Maier M.D. on 11/30/2022 at 10:28 Approved by: Mayelin Maier M.D. on 11/30/2022 at 10:31
== END ==
PROVIDERS: PCP Internal Medicine; Referring Provider Nurse Practitioner Family; Visit Provider Nurse Practitioner Family
DX: K38.8 Other specified diseases of appendix (principal); R14.0 Abdominal distension (gaseous)
CPT/HCPCS: 76700

== ENCOUNTER → 2023-05-10 10:26 | Outpatient (CLI) | payer MEDICARE, OTHER, SELFPAY ==
[2023-05-10 11:12] LABS: Hemoglobin A1C% w Est Avg Glu 5.9 % (4.0-6.0)
[2023-05-10 11:36] LABS: Alanine Aminotransferase 25 IU/L (<35); Albumin 4.4 g/dL (3.5-5.0); Albumin Globulin Ratio 1.3 (1.0-2.8); Alkaline Phosphatase 74 U/L (38-126); Aspartate Aminotransferase 31 IU/L (14-36); BUN Creatinine Ratio 11.1 (6-22); Bilirubin Total 0.9 mg/dL (0.2-1.3); Blood Urea Nitrogen 10 mg/dL (7-17); Calcium 10.7 mg/dL (8.4-10.2); Carbon Dioxide 28 mmol/L (22-32); Chloride 101 mmol/L (98-107); Cholesterol 221 mg/dL (140-199); Estimated Glomerular Filt Rate > 60 mL/min (>60); Globulin 3.3 g/dL (1.7-4.1); Glucose 101 mg/dL (80-110); HDL Cholesterol 48 mg/dL (40-60); HEMOLYSIS < 15 (0-50); LDL Cholesterol Calculated 136 mg/dL (<100); Potassium 4.3 mmol/L (3.4-5.1); Sodium 137 mmol/L (137-145); Total Protein 7.7 g/dL (6.3-8.2); Triglycerides 187 mg/dL (35-150)
[2023-05-10 11:58] LABS: Thyroid Stimulating Hormone 20.7 uIU/mL (0.47-4.68)
[2023-05-10 15:59] LABS: Creatinine Urine Random 125.2 mg/dL
[2023-05-10 16:03] LABS: Microalbumi Creatinin Ratio Ur 7.1 ug/mg CR (<30); Microalbumin Urine Random 0.9 mg/dL (0-1.6)
[2023-05-11 16:39] LABS: Hep C Virus Ab w/Reflex Quant NEGATIVE s/c (NEGATIVE)
== END ==
PROVIDERS: PCP Nurse Practitioner; Referring Provider Nurse Practitioner; Visit Provider Nurse Practitioner
DX: Z11.59 Encounter for screening for other viral diseases (principal); R73.01 Impaired fasting glucose; I10 Essential (primary) hypertension; F41.1 Generalized anxiety disorder; F51.04 Psychophysiologic insomnia; F33.9 Major depressive disorder, recurrent, unspecified; E78.2 Mixed hyperlipidemia
CPT/HCPCS: 36415; 80053; 80061; 82043; 82570; 83036; 84443; 86803

== ENCOUNTER → 2023-08-29 10:42 | Outpatient (CLI) | payer MEDICARE, OTHER, SELFPAY ==
[2023-08-29 13:19] LABS: Free T3, Triiodothyronine Free 3.49 pg/mL (2.77-5.27)
[2023-08-29 14:21] LABS: Free T4, Direct Thyroxine 1.29 ng/dL (0.78-2.19)
== END ==
PROVIDERS: PCP Nurse Practitioner; Referring Provider Physician Assistant; Visit Provider Physician Assistant
DX: R79.89 Other specified abnormal findings of blood chemistry (principal); E03.9 Hypothyroidism, unspecified
CPT/HCPCS: 36415; 84439; 84443; 84481

== ENCOUNTER → 2023-09-07 13:37 | Outpatient (CLI) | payer MEDICARE, OTHER, SELFPAY | PROVIDERS: PCP Nurse Practitioner; Referring Provider Nurse Practitioner; Visit Provider Nurse Practitioner | DX: R00.2 Palpitations (principal) | CPT/HCPCS: 93246 ==

== ENCOUNTER → 2023-09-20 12:44 | Outpatient (CLI) | payer MEDICARE, OTHER, SELFPAY ==
[2023-09-20 14:24] LABS: Thyroid Stimulating Hormone 31.4 uIU/mL (0.47-4.68)
== END ==
PROVIDERS: PCP Nurse Practitioner; Referring Provider Nurse Practitioner; Visit Provider Nurse Practitioner
DX: E03.9 Hypothyroidism, unspecified (principal)
CPT/HCPCS: 36415; 84443

== ENCOUNTER → 2023-10-11 11:07 | Outpatient (CLI) | payer MEDICARE, OTHER, SELFPAY ==
[2023-10-11 11:53] LABS: Influenza A - CEPHEID Flu A NEGATIVE (NEGATIVE); Influenza B - CEPHEID Flu B NEGATIVE (NEGATIVE); Respiratory Syncytial Virus Negative (Negative)
[2023-10-11 12:06] LABS: COVID-19 CEPHEID 4-PLEX PCR Negative (Negative)
== END ==
PROVIDERS: PCP Nurse Practitioner; Visit Provider Nurse Practitioner Family
DX: R05.1 Acute cough (principal); R50.9 Fever, unspecified; R53.83 Other fatigue
CPT/HCPCS: 0241U

== ENCOUNTER → 2023-10-11 11:30 | Outpatient (CLI) | payer MEDICARE, OTHER, SELFPAY ==
--- NOTE | 2023-10-11 11:32 | DI.RAD.S_ITS ---
PROCEDURE: XR CHEST 2V INDICATIONS: Cough TECHNIQUE: 2 views of the chest were acquired. COMPARISON: [facility], CR, XR CHEST 1V, 04/11/2019, 17:32. FINDINGS: Surgical changes and devices: None. Lungs and pleura: Lungs are clear. No pleural effusions or pneumothorax. Mediastinum: Mediastinal contours are unchanged. Asymmetric elevation of the right hemidiaphragm. Heart size is normal. Bones and chest wall: No suspicious bony abnormalities. Soft tissues appear unremarkable. IMPRESSION: No acute cardiopulmonary abnormality is seen. Dictated by: Manoj Farris M.D. on 10/11/2023 at 11:57 Approved by: Manoj Farris M.D. on 10/11/2023 at 11:57
== END ==
LOC: RAD 11:31
PROVIDERS: PCP Nurse Practitioner; Referring Provider Nurse Practitioner Family; Visit Provider Nurse Practitioner Family
DX: R05.1 Acute cough (principal); R50.9 Fever, unspecified; R53.83 Other fatigue
CPT/HCPCS: 0241U; 71046

== ENCOUNTER → 2023-11-30 11:51 | Outpatient (CLI) | payer OTHER, MEDICARE, SELFPAY ==
[2023-11-30 20:44] LABS: Free T4, Direct Thyroxine 1.49 ng/dL (0.78-2.19)
== END ==
PROVIDERS: PCP Nurse Practitioner; Referring Provider Nurse Practitioner; Visit Provider Nurse Practitioner
DX: E03.9 Hypothyroidism, unspecified (principal); R79.89 Other specified abnormal findings of blood chemistry
CPT/HCPCS: 36415; 84439; 84443

== ENCOUNTER → 2024-01-03 11:16 | Outpatient (CLI) | payer MEDICARE, OTHER, SELFPAY ==
[2024-01-03 13:08] LABS: Cholesterol 193 mg/dL (140-199); HDL Cholesterol 50 mg/dL (40-60); LDL Cholesterol Calculated 118 mg/dL (<100); Triglycerides 123 mg/dL (35-150)
== END ==
PROVIDERS: PCP Nurse Practitioner; Referring Provider Nurse Practitioner; Visit Provider Nurse Practitioner
DX: E78.2 Mixed hyperlipidemia (principal); E03.9 Hypothyroidism, unspecified
CPT/HCPCS: 36415; 80061; 84443

== ENCOUNTER → 2024-01-11 11:23 | Outpatient (CLI) | payer MEDICARE, OTHER, SELFPAY ==
--- NOTE | 2024-01-11 11:24 | DI.MG.S_ITS ---
BILATERAL DIGITAL SCREENING MAMMOGRAM 3D/2D WITH CAD: 01/11/2024 CLINICAL: Routine screening. Comparison is made to exams dated: 08/15/2020 mammogram and 11/07/2017 mammogram - [facility]. There are scattered areas of fibroglandular density in both breasts (category b / 25%-50% glandular tissue). Current study was also evaluated with a Computer Aided Detection (CAD) system. There are benign post operative findings in both breasts. No significant masses, calcifications, or other findings are seen in either breast. There has been no significant interval change. IMPRESSION: BENIGN There is no mammographic evidence of malignancy. A 1 year screening mammogram is recommended. Based on the Tyrer Cuzick model (a risk assessment model) the patient's lifetime risk is 0.8% and her 10 year risk is 0.0%. According to the ACR, ACS, and NCCN guidelines, an annual breast MRI exam along with mammogram is recommended if the patient's lifetime risk is 20% or greater. This exam was interpreted at Station ID: [id number]. NOTE: For mammograms, a report in lay terms will be sent to the patient. Approximately 15% of breast malignancies will not be visualized mammographically. In the management of a palpable breast mass, a negative mammogram must not discourage biopsy of a clinically suspicious lesion. Electronically Signed By: Maricruz Al M.D., Ph.D. jacky/manda:01/12/2024 07:52:35 letter sent: Normal Exam ACR BI-RADS Category 2: Benign Finding(s) 3342F
== END ==
PROVIDERS: PCP Nurse Practitioner; Referring Provider Nurse Practitioner; Visit Provider Nurse Practitioner
DX: Z12.31 Encounter for screening mammogram for malignant neoplasm of breast (principal); R92.323 Mammographic fibroglandular density, bilateral breasts
CPT/HCPCS: 77063; 77067

== ENCOUNTER → 2024-03-06 13:42 | Outpatient (CLI) | payer MEDICARE, OTHER, SELFPAY ==
[2024-03-06 16:12] LABS: Free T4, Direct Thyroxine 0.61 ng/dL (0.78-2.19)
== END ==
PROVIDERS: PCP Nurse Practitioner; Referring Provider Nurse Practitioner; Visit Provider Nurse Practitioner
DX: E03.9 Hypothyroidism, unspecified (principal)
CPT/HCPCS: 36415; 84439; 84443

== ENCOUNTER → 2024-03-22 15:51 | Outpatient (CLI) | payer MEDICARE, OTHER, SELFPAY ==
[2024-03-22 19:28] LABS: Free T4, Direct Thyroxine 0.85 ng/dL (0.78-2.19)
== END ==
PROVIDERS: PCP Nurse Practitioner Family; Referring Provider Nurse Practitioner Family; Visit Provider Nurse Practitioner Family
DX: E03.9 Hypothyroidism, unspecified (principal)
CPT/HCPCS: 36415; 84439; 84443

== ENCOUNTER → 2024-06-07 15:09 | Outpatient (CLI) | payer MEDICARE, OTHER, SELFPAY ==
[2024-06-07 19:41] LABS: Free T4, Direct Thyroxine 1.04 ng/dL (0.78-2.19)
== END ==
LOC: LAB 15:10
PROVIDERS: PCP Nurse Practitioner Family; Referring Provider Nurse Practitioner Family; Visit Provider Nurse Practitioner Family
DX: R79.89 Other specified abnormal findings of blood chemistry (principal); E03.9 Hypothyroidism, unspecified
CPT/HCPCS: 84439; 84443

== ENCOUNTER 2024-06-20 11:58 | Emergency (ER) | payer MEDICARE, OTHER, SELFPAY ==
[2024-06-20] VITALS (7 sets, daily range): BP systolic 170–190; BP diastolic 81–83; PULSE 52–64; RESP 16–23; TEMP 36.2; O2SAT 94–98; BMI 25.6
--- NOTE | 2024-06-20 12:23 | DI.CT.S_ITS ---
PROCEDURE: CT HEAD/BRAIN WO CON INDICATIONS: Confusion, frequent falls TECHNIQUE: Noncontrast 4.5 mm thick angled axial sections acquired from the foramen magnum to the vertex, with coronal and sagittal reformats. For radiation dose reduction, the following was used: automated exposure control, adjustment of mA and/or kV according to patient size. COMPARISON: None. FINDINGS: Image quality: Diagnostic. CSF spaces: Basal cisterns are patent. No extra-axial fluid collections. The ventricles are symmetric in size and shape. Brain: No intracranial bleeds or masses. There is cerebral volume loss for age, with resultant ventricular and sulcal prominence. There are moderate to severe periventricular and deep white matter chronic small vessel ischemic changes. There is intracranial internal carotid artery atherosclerosis. Skull and face: Calvarium and visualized facial bones appear intact, without suspicious lesions. Sinuses: Visualized sinuses and mastoids are clear. IMPRESSION: Age-related volume loss and moderate to severe small vessel ischemic change. No acute intracranial process. Dictated by: Kenton Dorado M.D. on 06/20/2024 at 13:01 Approved by: Kenton Dorado M.D. on 06/20/2024 at 13:02
--- NOTE | 2024-06-20 12:35 | ED.NEUROSD ---
HPI - Neuro Symptoms/Deficit General Chief Complaint: Neuro Symptoms/Deficit Stated Complaint: physical neuro changes Time Seen by Provider: 06/20/24 12:22 Source: patient and EMS Mode of arrival: EMS History of Present Illness HPI Narrative: Patient was a 78-year-old female. Is currently under the care by Neurology at the [facility]. Has been diagnosed with cognitive decline. Over the past several weeks she was had issues with what sounds like ataxia and occasional episodes of falling. She states that she occasionally has issues at home but not all the time. She has fallen a couple times without any specific injury. She denies headache, chest pain, shortness of breath, abdominal pain. She was alert and oriented x3. Apparently they had an appointment with a neurologist earlier today who advised that she come to the emergency department for ?scans? she does report some lower back discomfort. On Anticoagulants: No Related Data Previous Rx's Medication Instructions Recorded omeprazole 20 mg capsule,delayed 20 mg PO DAILY #90 caps 08/01/23 release montelukast 10 mg tablet 10 mg PO DAILY #90 tabs 08/29/23 prednisone 1 mg tablet 1 mg PO DAILY #90 tabs 08/29/23 zolpidem 5 mg tablet 5 mg PO HSP PRN insomnia #4 tabs 08/29/23 albuterol sulfate 90 mcg/actuation 2 puff inhalation Q6H PRN 01/03/24 aerosol inhaler shortness of breath or wheezing #6.7 grams fluticasone 250 mcg-salmeterol 50 1 inh inhalation BID #60 doses 01/03/24 mcg/dose blistr powdr for inhalation (Advair Diskus) ketorolac 10 mg tablet 10 mg PO Q6H PRN pain #20 tabs 01/03/24 paroxetine HCl 20 mg tablet 40 mg (2 x 20 mg) PO DAILY #180 01/03/24 tabs triamcinolone acetonide 0.1 % 1 applic topical BID Atopic 01/03/24 topical cream dermatitis #30 grams liothyronine 5 mcg tablet 5 mcg PO DAILY #90 tabs 01/08/24 hydrochlorothiazide 12.5 mg capsule 12.5 mg PO DAILY #90 caps 06/13/24 irbesartan 150 mg tablet 150 mg PO QPM #90 tabs 06/13/24 levothyroxine 125 mcg tablet 125 mcg PO DAILY #90 tabs 06/13/24 Allergies Allergy/AdvReac Type Severity Reaction Status Date / Time latex Allergy Rash to Verified 06/20/24 12:10 tape Review of Systems Review of Systems ROS Unobtainable: All systems reviewed & are unremarkable except as noted in HPI and below Hematologic/Lymphatic On Anticoagulants: No Patient History Medical History Mild cognitive impairment Family history of heart disease in male family member before age 55 Hypertriglyceridemia Abdominal bloating Generalized anxiety disorder Family history of colon cancer Chronic insomnia Osteopenia Asthma, mild intermittent Depression, major, recurrent GERD without esophagitis Acquired hypothyroidism Osteopenia after menopause Seborrheic keratoses Multiple benign nevi Spine pain, lumbosacral Facet arthropathy of spine Spinal stenosis, lumbar Asthma Tear of medial meniscus of right knee (03/2016) Hypothyroidism Surgical History History of arthroplasty of right knee History of hysterectomy History of appendectomy S/P arthroscopic partial medial meniscectomy (09/06/16) Social History marital status: details: , 3 children, dental technical staff assistant household members: spouse lives independently: Yes occupational status: previously employed Smoking Status: Never smoker alcohol intake: never substance use type: does not use Smoking Status: Never smoker alcohol intake frequency: holidays/special occasions only Exam Initial Vital Signs Initial Vital Signs: Vital Signs Pulse Rate 57 L 06/20/24 12:06 Respiratory Rate 16 06/20/24 12:06 Blood Pressure 190/81 H 06/20/24 12:06 Pulse Oximetry 97 06/20/24 12:06 Const General: cooperative, comfortable and No ill appearing HENME Head: normal to inspection and normocephalic Resp Effort & Inspection: normal respiratory effort Auscultation: clear to auscultation bilaterally Cardio Rate: regular rate Rhythm: regular rhythm Skin General: no rashes or lesions noted Neuro General: patient alert, patient awake, patient oriented x3 and moves all extremities Speech: speech normal Motor: muscle tone normal throughout Sensory Exam: no sensory deficits noted Extrem General: capillary refill normal Course Orders Ordered: ED Orders 06/20/24 12:07 Complete Blood Count AUTO DIFF Stat Comprehensive Metabolic Panel Stat Lipase Stat Magnesium Stat Thyroid Stimulating Hormone Stat 06/20/24 12:23 Consult to MEDICAL INFORMATION OFFICER - Consulting Hr Professional Stat CT head/brain wo con Stat 06/20/24 12:36 XR lumbar spine 2-3V Stat Vital Signs Vital signs: Vital Signs - 8 hr 06/20/24 12:06 06/20/24 12:06 06/20/24 12:10 Temperature 97.1 F L Pulse Rate 57 L 64 Respiratory Rate 16 18 Blood Pressure 190/81 H 190/81 H Pulse Oximetry 97 94 Oxygen Delivery Method Room Air 06/20/24 12:30 06/20/24 12:53 06/20/24 12:53 Temperature Pulse Rate 55 L 52 L Respiratory Rate 16 Blood Pressure 182/83 H Pulse Oximetry 97 98 Oxygen Delivery Method 06/20/24 13:00 06/20/24 13:00 06/20/24 13:30 Temperature Pulse Rate 53 L 53 L Respiratory Rate 19 Blood Pressure 170/81 H Pulse Oximetry 96 97 Oxygen Delivery Method 06/20/24 13:30 06/20/24 14:00 Temperature Pulse Rate 54 L Respiratory Rate 23 Blood Pressure 176/83 H Pulse Oximetry 95 Oxygen Delivery Method MDM - Neuro Symptoms/Deficit Lab Data Attestation: I reviewed the patient's lab results. 06/20/24 12:07 06/20/24 12:07 Labs: Lab Results 06/20/24 Range/Units 12:07 WBC 5.9 (4.5-11.0) X10^3/uL RBC 4.57 (4.0-5.2) X10^6/uL Hgb 13.9 (12.0-16.0) g/dL Hct 41.6 (36-46) % MCV 91.0 (80-100) fL MCH 30.5 (26-34) PG MCHC 33.5 (30-36) % RDW 13.9 (11.6-14.8) % Plt Count 233 (150-400) X10^3/uL Neut % (Auto) 63.8 (50-75) % Lymph % (Auto) 23.4 L (25-40) % [place] % (Auto) 9.3 (3-14) % Eos % (Auto) 2.8 (2-4) % Baso % (Auto) 0.7 (0-2) % Neut # (Auto) 3700 (3706-7570) /uL Lymph # (Auto) 1400 (9109-7769) /uL [place] # (Auto) 500 (0-900) /uL Eos # (Auto) 200 (0-450) /uL Baso # (Auto) 0 (0-100) /uL Sodium 138 (137-145) mmol/L Potassium 4.0 (3.4-5.1) mmol/L Chloride 104 (98-107) mmol/L Carbon Dioxide 27 (22-32) mmol/L BUN 12 (7-17) mg/dL Creatinine 1.01 (0.52-1.04) mg/dL Estimated GFR 57 L (>60) mL/min BUN/Creatinine Ratio 11.9 (6-22) Glucose 96 (80-110) mg/dL Calcium 9.6 (8.4-10.2) mg/dL Magnesium 2.1 (1.6-2.3) mg/dL Total Bilirubin 0.8 (0.2-1.3) mg/dL AST 44 H (14-36) IU/L ALT 23 (<35) IU/L Alkaline Phosphatase 64 (38-126) U/L Total Protein 7.6 (6.3-8.2) g/dL Albumin 4.4 (3.5-5.0) g/dL Globulin 3.2 (1.7-4.1) g/dL Albumin/Globulin Ratio 1.4 (1.0-2.8) Lipase 61 (23-300) U/L TSH 14.3 H (0.47-4.68) uIU/mL Imaging Data lumbar spine x ray: Radiologist's Impression: PROCEDURE: XR LUMBAR SPINE 2-3V INDICATIONS: low back pain TECHNIQUE: 3 views of the lumbar spine were acquired. COMPARISON: None. FINDINGS: Bones: 5 [id number]-[id number] vertebrae are present. There is normal bony alignment. No vertebral body compression fractures. No suspicious bony lesions. Spine degenerative disc disease and facet arthropathy. Soft tissues: Overlying bowel gas pattern is normal. No suspicious soft tissue calcifications. IMPRESSION: No fracture. No acute osseous lesion. If symptoms and/or clinical suspicion for pathology persists, evaluation with CT or MRI should be considered for further assessment. CT scan - head: Radiologist's Impression: PROCEDURE: CT HEAD/BRAIN WO CON INDICATIONS: Confusion, frequent falls TECHNIQUE: Noncontrast 4.5 mm thick angled axial sections acquired from the foramen magnum to the vertex, with coronal and sagittal reformats. For radiation dose reduction, the following was used: automated exposure control, adjustment of mA and/or kV according to patient size. COMPARISON: None. FINDINGS: Image quality: Diagnostic. CSF spaces: Basal cisterns are patent. No extra-axial fluid collections. The ventricles are symmetric in size and shape. Brain: No intracranial bleeds or masses. There is cerebral volume loss for age, with resultant ventricular and sulcal prominence. There are moderate to severe periventricular and deep white matter chronic small vessel ischemic changes. There is intracranial internal carotid artery atherosclerosis. Skull and face: Calvarium and visualized facial bones appear intact, without suspicious lesions. Sinuses: Visualized sinuses and mastoids are clear. IMPRESSION: Age-related volume loss and moderate to severe small vessel ischemic change. No acute intracranial process. Discharge Plan Departure Patient Disposition: Home Clinical Impression: Falls frequently Instructions: How to Prevent Falls Activity Restrictions/Additional Instructions: I recommend that you contact your primary doctor and also your neurologist for follow-up. It was important that you take the proper steps in order to avoid falling. Your thyroid test today was somewhat abnormal. I feel that this is an incidental finding however I do recommend that you contact your primary care doctor for a follow-up as you may need some adjustments to your thyroid medicine. Return to the emergency department for new or worsening symptoms. Prescriptions: No Action liothyronine 5 mcg tablet 5 mcg PO DAILY Qty: 90 1RF zolpidem 5 mg tablet 5 mg PO HSP PRN (Reason: insomnia) Qty: 4 1RF Rx Instructions: short supply locally montelukast 10 mg tablet 10 mg PO DAILY Qty: 90 3RF prednisone 1 mg tablet 1 mg PO DAILY Qty: 90 3RF albuterol sulfate 90 mcg/actuation HFA aerosol inhaler 2 puff INHALATION Q6H PRN (Reason: shortness of breath or wheezing) Qty: 6.7 5RF Rx Instructions: Rescue inhaler Advair Diskus 250-50 mcg/dose blister with device 1 inh INHALATION BID Qty: 60 11RF Patient Comments: patient states usually just at night and only if feels she needs to 04/11 Rx Instructions: Take 1 inhalation twice per day to help prevent asthma attacks and shortness of breath paroxetine HCl 20 mg tablet 40 mg PO DAILY Qty: 180 3RF Rx Instructions: Take 2 tabs daily for depression and anxiety ketorolac 10 mg tablet 10 mg PO Q6H PRN (Reason: pain) Qty: 20 0RF Rx Instructions: maximum total duration of 5 days from all oral, intranasal, or parenteral formulations triamcinolone acetonide 0.1 % cream 1 applic topical BID Qty: 30 0RF Rx Instructions: Apply to the affected site 1-2 times a day, up to 2 weeks. omeprazole 20 mg capsule,delayed release(DR/EC) 20 mg PO DAILY Qty: 90 3RF irbesartan 150 mg tablet 150 mg PO QPM Qty: 90 3RF hydrochlorothiazide 12.5 mg capsule 12.5 mg PO DAILY Qty: 90 3RF levothyroxine [Synthroid] 125 mcg tablet 125 mcg PO DAILY Qty: 90 0RF Referrals: Cheli Hoffmann FNP-BC [Primary Care Provider] - Stand Alone Forms: Patient Portal/API/Survey
--- NOTE | 2024-06-20 12:36 | DI.RAD.S_ITS ---
PROCEDURE: XR LUMBAR SPINE 2-3V INDICATIONS: low back pain TECHNIQUE: 3 views of the lumbar spine were acquired. COMPARISON: None. FINDINGS: Bones: 5 uqz-[id number]-rwlricx vertebrae are present. There is normal bony alignment. No vertebral body compression fractures. No suspicious bony lesions. Spine degenerative disc disease and facet arthropathy. Soft tissues: Overlying bowel gas pattern is normal. No suspicious soft tissue calcifications. IMPRESSION: No fracture. No acute osseous lesion. If symptoms and/or clinical suspicion for pathology persists, evaluation with CT or MRI should be considered for further assessment. Dictated by: Mana Garcia MD, PhD on 06/20/2024 at 12:57 Approved by: Mana Garcia MD, PhD on 06/20/2024 at 12:57
[2024-06-20 12:37] LABS: Add Manual Diff / Slide Review NO; Basophils Absolute Auto 0 /uL (0-100); Basophils Percent Auto 0.7 % (0-2); Eosinophils Absolute Auto 200 /uL (0-450); Eosinophils Percent Auto 2.8 % (2-4); Hematocrit 41.6 % (36-46); Hemoglobin 13.9 g/dL (12.0-16.0); Lymphocytes Absolute Auto 1400 /uL (1100-4500); Lymphocytes Percent Auto 23.4 % (25-40); Mean Corpuscular HGB Conc 33.5 % (30-36); Mean Corpuscular Hemoglobin 30.5 PG (26-34); Monocytes Absolute Auto 500 /uL (0-900); Monocytes Percent Auto 9.3 % (3-14); Neutrophils Absolute Auto 3700 /uL (1500-7000); Neutrophils Percent Auto 63.8 % (50-75); Platelet Count 233 X10^3/uL (150-400); Red Blood Cell Count 4.57 X10^6/uL (4.0-5.2); Red Cell Distribution Width 13.9 % (11.6-14.8); White Blood Cell Count 5.9 X10^3/uL (4.5-11.0)
[2024-06-20 12:39] LABS: Alanine Aminotransferase 23 IU/L (<35); Albumin 4.4 g/dL (3.5-5.0); Albumin Globulin Ratio 1.4 (1.0-2.8); Alkaline Phosphatase 64 U/L (38-126); Aspartate Aminotransferase 44 IU/L (14-36); BUN Creatinine Ratio 11.9 (6-22); Bilirubin Total 0.8 mg/dL (0.2-1.3); Blood Urea Nitrogen 12 mg/dL (7-17); Calcium 9.6 mg/dL (8.4-10.2); Carbon Dioxide 27 mmol/L (22-32); Chloride 104 mmol/L (98-107); Estimated Glomerular Filt Rate 57 mL/min (>60); Globulin 3.2 g/dL (1.7-4.1); Glucose 96 mg/dL (80-110); HEMOLYSIS 41 (0-50); Lipase 61 U/L (23-300); Magnesium 2.1 mg/dL (1.6-2.3); Sodium 138 mmol/L (137-145); Total Protein 7.6 g/dL (6.3-8.2)
[2024-06-20 13:10] LABS: Thyroid Stimulating Hormone 14.3 uIU/mL (0.47-4.68)
--- NOTE | 2024-06-20 13:33 | CM.SWNOTE ---
ED DIRECTOR SOCIAL SERVICE Notes: Patient is a 78yo female, resident of [place], with her spouse, Bernard. Patient presented to the ED due to increased falls and neurological symptoms, pt was advised by neurologist at to present to the ED today. Patient's Primary Care Provider is TIESHA Hunter and insurance is Medicare and . Reviewed chart and discussed pt with ED Provider. Per Provider, pt looks to be cleared for discharge and requested this DIRECTOR SOCIAL SERVICE to discuss additional support for pt in the home. ED DIRECTOR SOCIAL SERVICE entered room, introduced self and role. Present in the room is pt's spouse, Bernard. Patient explained she is working with her medical team and hopeful to review her medication list with her PCP soon. Pt and spouse decline need for home health referral at this time. ED DIRECTOR SOCIAL SERVICE encouraged pt to discuss possible PT with her PCP. ED DIRECTOR SOCIAL SERVICE sent message to TCM Team, notifying them of their presentation to the ED, requesting ED follow up appt with PCP. Plan: Discharge home with family when medically cleared, follow up with PCP and neurologist. WARNER Crane
== END 2024-06-20 14:20 | disposition home or self-care (01) ==
PROVIDERS: Emergency Provider Emergency Medicine; PCP Nurse Practitioner Family
DX: R29.6 Repeated falls (principal); G31.84 Mild cognitive impairment of uncertain or unknown etiology; M54.50 Low back pain, unspecified
CPT/HCPCS: 70450; 72100; 80053; 83690; 83735; 84443; 85025; 99283; 99284

== ENCOUNTER 2024-06-25 12:27 | Emergency (ER) | payer MEDICARE, OTHER, SELFPAY ==
[2024-06-25 12:31] VITALS: BP 138/69; PULSE 65; RESP 18; TEMP 36.3; O2SAT 95; BMI 25.6
--- NOTE | 2024-06-25 14:47 | PC.NURSE ---
Patient reports no changes in gait or balance since seen in ER couple days ago. Patient states her daughter was insistent on her coming in for more of an evaluation. Patient handed over her phone to discuss plan with daughter. Patient's daugher very frustrated on phone, endded up hanging up on staff. Informed patient of interaction. patient very apologetic for daughters behavior she can be very protective and hot headed Reassured patient we were doing our best to assist patient with outpatient imaging and follow up appointments
[2024-06-25 15:44] VITALS: BP 136/72; PULSE 70; RESP 12; O2SAT 99
--- NOTE | 2024-06-25 16:18 | PC.NURSE ---
Voicemal left on patients phone providing follow up appointment date of MondayJuly 03 at 1030am.
--- NOTE | 2024-06-25 16:28 | ED.WEAKNESS ---
HPI - Weakness <Jessica Arreguin PA-C - Last Filed: 06/25/24 16:52> General Chief complaint: Weakness Stated complaint: falling, trouble with balance Time Seen by Provider: 06/25/24 14:11 Source: patient Mode of arrival: Ambulatory History of Present Illness HPI Narrative: 78-year-old female who is currently under the care of neurology presents to the ED for an unstable gait. Patient presented to the ED recently on 06/20/2024, stating that her neurologist that she saw earlier that day had asked her to come in for some scans. Patient had a normal workup including labs, CT scan, x-rays. Today, patient presents to the ED again, stating that her daughter asked her to come to the ED for further workup. During the ED visit, patient's daughter spoke to the author of this document and insisted that there PCP general had called the ED and sent the patient here to the ED for an MRI. ED staff have not received any notification from general. Explained to patient's daughter that general likely ordered an outpatient MRI that patient has to schedule and then follow-up with PCP. Patient's daughter was frustrated and hung up the phone. Patient endorses that she has not had any new symptoms since she was last seen in the ED. no new falls. ED nurse and social services specialist assisted the patient by making an appointment for the MRI for the 28 of June, and also a PCP follow-up to review the MRI. Patient and patient's were very appreciative of the efforts. Related Data Previous Rx's Medication Instructions Recorded omeprazole 20 mg capsule,delayed 20 mg PO DAILY #90 caps 08/01/23 release montelukast 10 mg tablet 10 mg PO DAILY #90 tabs 08/29/23 prednisone 1 mg tablet 1 mg PO DAILY #90 tabs 08/29/23 zolpidem 5 mg tablet 5 mg PO HSP PRN insomnia #4 tabs 08/29/23 albuterol sulfate 90 mcg/actuation 2 puff inhalation Q6H PRN 01/03/24 aerosol inhaler shortness of breath or wheezing #6.7 grams fluticasone 250 mcg-salmeterol 50 1 inh inhalation BID #60 doses 01/03/24 mcg/dose blistr powdr for inhalation (Advair Diskus) ketorolac 10 mg tablet 10 mg PO Q6H PRN pain #20 tabs 01/03/24 paroxetine HCl 20 mg tablet 40 mg (2 x 20 mg) PO DAILY #180 01/03/24 tabs triamcinolone acetonide 0.1 % 1 applic topical BID Atopic 01/03/24 topical cream dermatitis #30 grams liothyronine 5 mcg tablet 5 mcg PO DAILY #90 tabs 01/08/24 hydrochlorothiazide 12.5 mg capsule 12.5 mg PO DAILY #90 caps 06/13/24 irbesartan 150 mg tablet 150 mg PO QPM #90 tabs 06/13/24 levothyroxine 125 mcg tablet 125 mcg PO DAILY #90 tabs 06/13/24 Allergies Allergy/AdvReac Type Severity Reaction Status Date / Time latex Allergy Rash to Verified 06/20/24 12:10 tape Review of Systems <Jessica Arreguin PA-C - Last Filed: 06/25/24 16:52> Constitutional Constitutional: Denies chills, Denies fatigue, Denies fever(s), Denies frequent falls, Denies lethargy and Denies weakness Eyes Eyes: Denies change in vision, Denies eye discharge, Denies irritation and Denies loss of vision ENT Ears, Nose, Mouth, and Throat: Denies change in voice, Denies dizziness, Denies neck pain, Denies sore throat and Denies throat swelling Cardiovascular Cardiovascular: Denies chest pain, Denies irregular heart rhythm, Denies lightheadedness, Denies palpitations, Denies dyspnea, Denies dyspnea on exertion and Denies orthopnea Respiratory Respiratory: Denies cough, Denies dyspnea, Denies dyspnea on exertion and Denies wheezing Gastrointestinal Gastrointestinal: Denies abdominal pain, Denies change in bowel habits, Denies diarrhea, Denies nausea and Denies vomiting Musculoskeletal Musculoskeletal: Denies neck pain and Denies numbness Integumentary/Breasts Skin/Breast: Denies pruritus, Denies erythema, Denies rash and Denies wounds Comments: Frequent falls Neurologic Neurologic: Denies behavioral changes, Denies confusion, Denies dizziness, Denies frequent falls, Denies loss of vision, Denies numbness and Denies weakness Psychiatric Psychiatric: Denies anxiety, Denies behavioral changes, Denies confusion, Denies depression, Denies homicidal ideation and Denies suicidal ideation Endocrine Endocrine: Denies fatigue, Denies flushing and Denies palpitations Hematologic/Lymphatic Hematologic/Lymphatic: Denies easy bruising Allergic/Immunologic Allergic/Immunologic: Denies urticaria, Denies throat swelling and Denies wheezing Patient History <eJssica Arreguin PA-C - Last Filed: 06/25/24 16:52> Medical History Mild cognitive impairment Family history of heart disease in male family member before age 55 Hypertriglyceridemia Abdominal bloating Generalized anxiety disorder Family history of colon cancer Chronic insomnia Osteopenia Asthma, mild intermittent Depression, major, recurrent GERD without esophagitis Acquired hypothyroidism Osteopenia after menopause Seborrheic keratoses Multiple benign nevi Spine pain, lumbosacral Facet arthropathy of spine Spinal stenosis, lumbar Asthma Tear of medial meniscus of right knee (03/2016) Hypothyroidism Surgical History History of arthroplasty of right knee History of hysterectomy History of appendectomy S/P arthroscopic partial medial meniscectomy (09/06/16) Social History marital status: details: , 3 children, 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: spouse lives independently: Yes occupational status: previously employed Smoking Status: Never smoker alcohol intake: never substance use type: does not use Smoking Status: Never smoker alcohol intake frequency: holidays/special occasions only Exam <Jessica Arreguin PA-C - Last Filed: 06/25/24 16:52> Narrative Exam Narrative: Const General:?cooperative, healthy appearing and comfortable [facility] Head:?normal to inspection Ears:?hearing grossly normal bilaterally Nose:?external nose normal Face and sinus:?normal facial exam and sinuses nontender Mouth:?oral mucosae normal Throat:?posterior oropharynx normal Eyes General:?appearance normal, both eyes and all related structures Neck Neck:?normal visual inspection and no lymphadenopathy noted Resp Effort & Inspection:?normal respiratory effort Auscultation:?clear to auscultation bilaterally Cardio Rate:?regular rate Rhythm:?regular rhythm Neuro General:?patient alert, patient awake and patient oriented x3; CN 1 through 12 intact bilaterally; gait is normal; PERRLA. Strength and sensation is intact. Patient is neurologically intact. Initial Vital Signs Initial Vital Signs: Vital Signs Temperature 97.4 F L 06/25/24 12:31 Pulse Rate 65 06/25/24 12:31 Respiratory Rate 18 06/25/24 12:31 Blood Pressure 138/69 06/25/24 12:31 Pulse Oximetry 95 06/25/24 12:31 Oxygen Delivery Method Room Air 06/25/24 12:31 <Lloyd Carrillo MD - Last Filed: 06/28/24 08:26> Initial Vital Signs Initial Vital Signs: Vital Signs Temperature 97.4 F L 06/25/24 12:31 Pulse Rate 65 06/25/24 12:31 Respiratory Rate 18 06/25/24 12:31 Blood Pressure 138/69 06/25/24 12:31 Pulse Oximetry 95 06/25/24 12:31 Oxygen Delivery Method Room Air 06/25/24 12:31 Course <Jessica Arreguin PA-C - Last Filed: 06/25/24 16:52> Vital Signs Vital signs: Vital Signs - 8 hr 06/25/24 12:31 06/25/24 15:44 Temperature 97.4 F L Pulse Rate 65 70 Respiratory Rate 18 12 Blood Pressure 138/69 136/72 Pulse Oximetry 95 99 Oxygen Delivery Method Room Air Room Air <Lloyd Carrillo MD - Last Filed: 06/28/24 08:26> Vital Signs Vital signs: Vital Signs - 8 hr 06/25/24 12:31 06/25/24 15:44 Temperature 97.4 F L Pulse Rate 65 70 Respiratory Rate 18 12 Blood Pressure 138/69 136/72 Pulse Oximetry 95 99 Oxygen Delivery Method Room Air Room Air MDM - Weakness <Jessica Arreguin PA-C - Last Filed: 06/25/24 16:52> MDM Narrative Medical decision making narrative: 78-year-old female who is currently under the care of neurology presents to the ED for an unstable gait. It is reassuring that patient has had no new symptoms, upon examination is neurologically intact. There is no emergent indication for further workup today in the ED. It is also reassuring that we have secured appointments with MRI as well as the PCP. ED return precautions were discussed with patient and patient's . They verbalized understanding. Medical records reviewed: Yes Discharge Plan Departure Patient Disposition: Home Clinical Impression: Gait instability Instructions: How to Prevent Falls Activity Restrictions/Additional Instructions: You were seen in the ED today. It appears that you have no new symptoms since the last ED visit, which is reassuring. It appears that your PCP has ordered some MRIs to be obtained outpatient. You have an MRI appointment for 8:00 a.m. on June 28. We are in the process of securing a follow-up appointment with your PCP, Cheli after you obtain the MRI. We will call you once we confirm the PCP appointment. In the meanwhile, please exercise fall precautions. Return to the ED if you have any worsening symptoms. Prescriptions: No Action liothyronine 5 mcg tablet 5 mcg PO DAILY Qty: 90 1RF zolpidem 5 mg tablet 5 mg PO HSP PRN (Reason: insomnia) Qty: 4 1RF Rx Instructions: short supply locally montelukast 10 mg tablet 10 mg PO DAILY Qty: 90 3RF prednisone 1 mg tablet 1 mg PO DAILY Qty: 90 3RF albuterol sulfate 90 mcg/actuation HFA aerosol inhaler 2 puff INHALATION Q6H PRN (Reason: shortness of breath or wheezing) Qty: 6.7 5RF Rx Instructions: Rescue inhaler Advair Diskus 250-50 mcg/dose blister with device 1 inh INHALATION BID Qty: 60 11RF Patient Comments: patient states usually just at night and only if feels she needs to 04/11 Rx Instructions: Take 1 inhalation twice per day to help prevent asthma attacks and shortness of breath paroxetine HCl 20 mg tablet 40 mg PO DAILY Qty: 180 3RF Rx Instructions: Take 2 tabs daily for depression and anxiety ketorolac 10 mg tablet 10 mg PO Q6H PRN (Reason: pain) Qty: 20 0RF Rx Instructions: maximum total duration of 5 days from all oral, intranasal, or parenteral formulations triamcinolone acetonide 0.1 % cream 1 applic topical BID Qty: 30 0RF Rx Instructions: Apply to the affected site 1-2 times a day, up to 2 weeks. omeprazole 20 mg capsule,delayed release(DR/EC) 20 mg PO DAILY Qty: 90 3RF irbesartan 150 mg tablet 150 mg PO QPM Qty: 90 3RF hydrochlorothiazide 12.5 mg capsule 12.5 mg PO DAILY Qty: 90 3RF levothyroxine [Synthroid] 125 mcg tablet 125 mcg PO DAILY Qty: 90 0RF Referrals: Cheli Hoffmann, INDUCTION FURNACE OPERATOR-BC [Primary Care Provider] - Stand Alone Forms: Patient Portal/API/Survey ED Sign-out <Lloyd Carrillo MD - Last Filed: 06/28/24 08:26> Cosign ED Attending Cosignature Attestation: I was immediately available in the department for consultation. ?This documentation has been reviewed and I agree with assessment and plan. Supervised by Lloyd Carrillo MD
== END 2024-06-25 15:45 | disposition home or self-care (01) ==
PROVIDERS: Emergency Provider Student in an Organized Health Care Education/Training Program; PCP Nurse Practitioner Family
DX: R26.89 Other abnormalities of gait and mobility (principal)
CPT/HCPCS: 99281

== ENCOUNTER → 2024-07-02 18:31 | Outpatient (CLI) | payer MEDICARE, OTHER, SELFPAY ==
--- NOTE | 2024-07-02 18:34 | DI.MRI.S_ITS ---
PROCEDURE: MR CERVICAL SPINE WO CON INDICATIONS: Ataxia, acute/subacute gait disturbance TECHNIQUE: Noncontrast sagittal T1 spin echo and T2 fast spin echo, sagittal STIR, foraminal oblique sagittal T2 fast spin echo, and axial gradient echo or T2 fast spin echo through the cervical spine. COMPARISON: None. FINDINGS: Image quality: Motion degraded Alignment and Curvature: No spondylolisthesis. No acute fracture Bone Marrow: No acute fracture. Nonspecific edema in the anterior portion of C5. Spinal Cord: No myelopathic cord signal identified Paraspinous Soft Tissues: No paravertebral fluid collection or soft tissue mass identified C2-C3: Small posterior disc bulge. Mild facet arthropathy. Mild left neural foraminal narrowing. C3-C4: Small posterior disc osteophyte complex. Uncovertebral and facet arthropathy. Mild left and right neural foraminal narrowing. C4-C5: Posterior disc osteophyte complex. Diffuse disc bulge. Uncovertebral and facet arthropathy. [id number] bilateral neural foraminal narrowing. C5-C6: Posterior disc osteophyte complex. Uncovertebral and facet arthropathy. Moderate right and moderate to severe left neural foraminal narrowing. Mild central narrowing C6-C7: Posterior disc osteophyte complex. Uncovertebral and facet arthropathy. Mild right neural foraminal narrowing. C7-T1: Facet arthropathy bilaterally. No stenosis. IMPRESSION: Overall moderate degenerative changes as above, with stenosis seen at C5-C6, worse on the left neural foramen. There is no critical thecal sac stenosis or definite myelopathic cord signal identified. Motion degraded MRI. Nonspecific focal T2 signal in the anterior portion at C5, possibly degenerative Modic changes versus contusion. Mild edema extends anterior ligament. Exam was ordered with contrast. Patient had a contrast reaction. Dictated by: Nabil Adam M.D. on 07/02/2024 at 20:34 Approved by: Nabil Adam M.D. on 07/02/2024 at 20:39
--- NOTE | 2024-07-02 18:34 | DI.MRI.S_ITS ---
PROCEDURE: MR THORACIC SPINE WO CON INDICATIONS: Ataxia, acute/subacute gait disturbance TECHNIQUE: Noncontrast sagittal T1 spine echo and T2 fast spin echo, sagittal STIR, and T2 fast spin echo through the thoracic spine. COMPARISON: None. FINDINGS: Image quality: Diagnostic Alignment and Curvature: No spondylolisthesis Bone Marrow: No acute fracture. Focal edema is seen at the anterior inferior endplate of T8. Spinal Cord: No definite myelopathic cord signal. Cord terminates in normal position at the thoracolumbar junction. Paraspinous Soft Tissues: No paravertebral mass or fluid collection identified Miscellaneous: No critical stenosis of the thecal sac on axial images. Mild bilateral scattered areas of neural foraminal narrowing at the cervical thoracic junction and thoracolumbar junction. No significant stenosis IMPRESSION: No critical stenosis identified. No definite myelopathic cord signal. Cord terminates in expected position at the thoracolumbar junction. Mild focal edema at the anterior inferior endplate of T8, suspected to be focal edematous Modic changes, less likely traumatic injury unless there is concordant history. Dictated by: Nabil Adam M.D. on 07/02/2024 at 20:40 Approved by: Nabil Adam M.D. on 07/02/2024 at 20:43
--- NOTE | 2024-07-02 18:34 | DI.MRI.S_ITS ---
PROCEDURE: MR HEAD/BRAIN WO CON INDICATIONS: Ataxia, acute/subacute gait disturbance TECHNIQUE: Noncontrast axial T1 spin echo, axial T2 fast spin echo, sagittal and axial FLAIR, coronal T2 fast spin echo, axial gradient echo, axial diffusion and ADC through the brain. COMPARISON: [facility], CT, CT HEAD/BRAIN WO CON, 06/20/2024, 12:26. FINDINGS: Image quality: Diagnostic CSF spaces: Basal cisterns are patent. Lateral ventricles are symmetric. Volume: Volume loss. Periventricular white matter signal abnormality most commonly seen with small vessel disease. These findings are moderate Brain: No definite diffusion restriction to indicate acute infarct. No definite acute hematoma. Possible prior microhemorrhages are seen. Craniofacial structures: No significant paranasal sinus opacity. There lens replacements. IMPRESSION: No acute infarct or hematoma. Please note this was ordered with contrast, patient had a contrast reaction. Dictated by: Nabil Adam M.D. on 07/02/2024 at 20:28 Approved by: Nabil Adam M.D. on 07/02/2024 at 20:33
== END ==
LOC: MRI 18:33
PROVIDERS: PCP Nurse Practitioner Family; Referring Provider Nurse Practitioner Family; Visit Provider Nurse Practitioner Family
DX: M47.812 Spondylosis without myelopathy or radiculopathy, cervical region (principal); M48.02 Spinal stenosis, cervical region; R27.0 Ataxia, unspecified; R29.6 Repeated falls; R26.9 Unspecified abnormalities of gait and mobility; T50.8X5A Adverse effect of diagnostic agents, initial encounter
CPT/HCPCS: 70551; 72141; 72146

== ENCOUNTER 2024-07-02 20:01 | Emergency (ER) | payer MEDICARE, SELFPAY ==
[2024-07-02] VITALS (13 sets, daily range): BP systolic 119–130; BP diastolic 60–64; PULSE 66–93; RESP 15–45; TEMP 36.2; O2SAT 83–98; BMI 27.4
--- NOTE | 2024-07-02 20:06 | ED_ITS ---
HPI - Allergic Reaction General Chief complaint: Allergic Reaction Stated complaint: Allergic reaction Time Seen by Provider: 07/02/24 20:05 Source: patient, RN notes reviewed and old records reviewed Mode of arrival: Wheelchair Limitations: no limitations History of Present Illness HPI narrative: 78-year-old female history of hypertension, hypothyroidism presents with complaint for concern of allergic reaction after receiving contrast while having an MRI had about 1954. Patient states feels like it is sort of hard to swallow that are head is going to pop off. Patient states does not really seemed to be getting any worse but isn't improving. She does not feel itchy she does not have any rash denies any chest pain or shortness of breath. No nausea or vomiting. Has not had similar symptoms in the past. States she takes medication for old age but appears to be hypertension, hypothyroidism. Patient states has not allergy to latex but no other known medication allergies. No tobacco, occasional alcohol, no recreational drugs. Related Data Previous Rx's Medication Instructions Recorded omeprazole 20 mg capsule,delayed 20 mg PO DAILY #90 caps 08/01/23 release montelukast 10 mg tablet 10 mg PO DAILY #90 tabs 08/29/23 prednisone 1 mg tablet 1 mg PO DAILY #90 tabs 08/29/23 zolpidem 5 mg tablet 5 mg PO HSP PRN insomnia #4 tabs 08/29/23 albuterol sulfate 90 mcg/actuation 2 puff inhalation Q6H PRN 01/03/24 aerosol inhaler shortness of breath or wheezing #6.7 grams fluticasone 250 mcg-salmeterol 50 1 inh inhalation BID #60 doses 01/03/24 mcg/dose blistr powdr for inhalation (Advair Diskus) ketorolac 10 mg tablet 10 mg PO Q6H PRN pain #20 tabs 01/03/24 paroxetine HCl 20 mg tablet 40 mg (2 x 20 mg) PO DAILY #180 01/03/24 tabs triamcinolone acetonide 0.1 % 1 applic topical BID Atopic 01/03/24 topical cream dermatitis #30 grams liothyronine 5 mcg tablet 5 mcg PO DAILY #90 tabs 01/08/24 hydrochlorothiazide 12.5 mg capsule 12.5 mg PO DAILY #90 caps 06/13/24 irbesartan 150 mg tablet 150 mg PO QPM #90 tabs 06/13/24 levothyroxine 125 mcg tablet 125 mcg PO DAILY #90 tabs 06/13/24 prednisone 10 mg tablets in a dose See Rx Instructions PO .COMPLEX 07/02/24 pack #10 ea Allergies Allergy/AdvReac Type Severity Reaction Status Date / Time Gadolinium-Containing Allergy Severe Anaphylaxis Verified 07/02/24 20:32 Contrast Medi latex Allergy Rash to Verified 06/20/24 12:10 tape Review of Systems Review of Systems ROS Unobtainable: All systems reviewed & are unremarkable except as noted in HPI and below Patient History Medical History Mild cognitive impairment Family history of heart disease in male family member before age 55 Hypertriglyceridemia Abdominal bloating Generalized anxiety disorder Family history of colon cancer Chronic insomnia Osteopenia Asthma, mild intermittent Depression, major, recurrent GERD without esophagitis Acquired hypothyroidism Osteopenia after menopause Seborrheic keratoses Multiple benign nevi Spine pain, lumbosacral Facet arthropathy of spine Spinal stenosis, lumbar Asthma Tear of medial meniscus of right knee (03/2016) Hypothyroidism Surgical History History of arthroplasty of right knee History of hysterectomy History of appendectomy S/P arthroscopic partial medial meniscectomy (09/06/16) Social History marital status: details: , 3 children, dental phys assistant household members: spouse lives independently: Yes occupational status: previously employed Smoking Status: Never smoker alcohol intake: never substance use type: does not use Smoking Status: Never smoker alcohol intake frequency: holidays/special occasions only Exam Narrative Exam Narrative: GEN: well nourished, well appearing female, alert and oriented x 3, patient appears to be in [id number] distress. HEENT: Atraumatic, pupils are equal round reactive to light, extraocular movements are intact, nares are clear, TMs are clear with no fluid, there is no conjunctival pallor. Throat is clear without any exudates, erythema, tonsillar enlargement or uvular deviation, no swelling of the oropharynx. Patient's face appears slightly red. Patient's sounds slightly hoarse but no stridor no difficulty with secretions. HEART: Regular rate and rhythm without murmur, clicks, rubs. Pulses are equal in upper and lower extremities LUNGS:Lungs clear to auscultation, no wheezes, rales, crackles, chest moves symmetrically, no tachypnea or accessory muscle use ABD:bowel sounds normal, soft, non-tender, no guarding, rebound, rigidity, no masses noted, no hepatosplenomegaly MSCL: Non-tender, no muscle atrophy, muscles strength 5/5 upper and lower extremities, full range of motion, normal gait NEURO:CN 2-12 intact, sensation normal SKIN: No hives, erythema or other skin changes appreciated Initial Vital Signs Initial Vital Signs: Vital Signs Pulse Rate 76 07/02/24 20:02 Pulse Oximetry 85 L 07/02/24 20:02 Course Orders Ordered: ED Orders 07/02/24 20:05 Complete Blood Count AUTO DIFF Stat Comprehensive Metabolic Panel Stat Lipase Stat NT-proBNP (BNP-Adult 18+) Stat Troponin & CK Cardiac Panel Stat 07/02/24 20:18 EKG-12 Lead Stat 07/02/24 20:30 XR chest 1V Stat Discontinued Medications Diphenhydramine HCl (Diphenhydramine 50 Mg/Ml Vial) 50 mg IV NOW ONE Stop: 07/02/24 20:06 Last Admin: 07/02/24 20:08 Dose: 50 mg Documented By: AB Epinephrine HCl (Epinephrine 1 Mg/Ml) 0.5 mg IM NOW ONE Stop: 07/02/24 20:06 Last Admin: 07/02/24 20:12 Dose: 0.5 mg Documented By: AB Famotidine (Famotidine 20 Mg/2 Ml Vial) 20 mg IV NOW HANNAH Last Admin: 07/02/24 20:08 Dose: 20 mg Documented By: AB Methylprednisolone (Methylprednisolone 125 Mg/2 Ml Vial) 125 mg IV NOW ONE Stop: 07/02/24 20:06 Last Admin: 07/02/24 20:07 Dose: 125 mg Documented By: AB Pantoprazole Sodium (Pantoprazole 40 Mg Vial) 40 mg IV NOW ONE Stop: 07/02/24 21:59 Last Admin: 07/02/24 22:05 Dose: 40 mg Documented By: AB Vital Signs Vital signs: Vital Signs - 8 hr 07/02/24 20:02 07/02/24 20:05 07/02/24 20:05 Temperature Pulse Rate 76 71 Respiratory Rate 31 H Blood Pressure 129/62 Pulse Oximetry 85 L 88 L Oxygen Delivery Method Oxygen Flow Rate 07/02/24 20:07 07/02/24 20:09 07/02/24 20:15 Temperature Pulse Rate 66 67 72 Respiratory Rate 28 H 28 H 39 H Blood Pressure 129/62 Pulse Oximetry 91 83 L 96 Oxygen Delivery Method Oximask Room Air Oxygen Flow Rate 10 07/02/24 20:16 07/02/24 20:30 07/02/24 20:45 Temperature 97.1 F L Pulse Rate 83 93 H Respiratory Rate 45 H 39 H Blood Pressure Pulse Oximetry 95 96 98 Oxygen Delivery Method Oximask Oximask Room Air Oxygen Flow Rate 10 3 07/02/24 21:00 07/02/24 21:15 07/02/24 22:07 Temperature Pulse Rate 87 85 93 H Respiratory Rate 32 H 28 H 16 Blood Pressure Pulse Oximetry 96 95 95 Oxygen Delivery Method Room Air Room Air Room Air Oxygen Flow Rate 07/02/24 22:08 07/02/24 23:01 Temperature Pulse Rate 89 Respiratory Rate 15 Blood Pressure 130/60 119/64 Pulse Oximetry 95 Oxygen Delivery Method Room Air Oxygen Flow Rate MDM - Allergic Reaction Lab Data 07/02/24 20:05 07/02/24 20:05 Labs: Lab Results 07/02/24 Range/Units 20:05 WBC 5.7 (4.5-11.0) X10^3/uL RBC 4.45 (4.0-5.2) X10^6/uL Hgb 13.7 (12.0-16.0) g/dL Hct 39.8 (36-46) % MCV 89.5 (80-100) fL MCH 30.8 (26-34) PG MCHC 34.4 (30-36) % RDW 13.5 (11.6-14.8) % Plt Count 241 (150-400) X10^3/uL Neut % (Auto) 45.1 L (50-75) % Lymph % (Auto) 47.5 H (25-40) % Moody % (Auto) 6.3 (3-14) % Eos % (Auto) 0.7 L (2-4) % Baso % (Auto) 0.4 (0-2) % Neut # (Auto) 2600 (1688-5223) /uL Lymph # (Auto) 2700 (7721-0648) /uL Moody # (Auto) 400 (0-900) /uL Eos # (Auto) 0 (0-450) /uL Baso # (Auto) 0 (0-100) /uL Sodium 136 L (137-145) mmol/L Potassium 4.0 (3.4-5.1) mmol/L Chloride 103 (98-107) mmol/L Carbon Dioxide 25 (22-32) mmol/L BUN 13 (7-17) mg/dL Creatinine 0.92 (0.52-1.04) mg/dL Estimated GFR > 60 (>60) mL/min BUN/Creatinine Ratio 14.1 (6-22) Glucose 105 (80-110) mg/dL Calcium 9.7 (8.4-10.2) mg/dL Total Bilirubin 0.4 (0.2-1.3) mg/dL AST 36 (14-36) IU/L ALT 26 (<35) IU/L Alkaline Phosphatase 74 (38-126) U/L Total Creatine Kinase 38 (30-135) U/L Troponin I < 0.012 (0.01-0.034) ng/mL NT-Pro-B Natriuret Pep 143 (<450) pg/mL Total Protein 7.2 (6.3-8.2) g/dL Albumin 4.2 (3.5-5.0) g/dL Globulin 3.0 (1.7-4.1) g/dL Albumin/Globulin Ratio 1.4 (1.0-2.8) Lipase 78 (23-300) U/L ECG Data Attestation: I personally reviewed and interpreted this ECG as follows: Prior ECG tracings: available for review Interpretation: Sinus rhythm rate 80 FL 142 QRS is 78 QTC of 426, no acute ST elevation. Patient has prior from 04/11/2019 with no acute changes. [facility] Narrative Medical decision making narrative: 78-year-old female appears to be having a reaction to contrast dye from MRI. Was treated with Benadryl, Pepcid, Solu-Medrol and epinephrine secondary to airway symptoms. Recheck @ 2030: Patient states her airway feels better her speech seems a little bit improved. O2 has been titrated down but she was little bit of chest discomfort. Nursing notes that they gave 1 mg of epinephrine IM not 0.5 mg and epinephrine. 0.5mg epinephrine ordered. We will add on labs, EKG and chest x- ray. Recheck @ 2058 patient is feeling significantly improved she was off O2 she was much more comfortable. 2199: Patient is ambulating in the department without any issue. 2251: Patient continues to feel improved. She was on a low dose of prednisone at home so we will give a script if she was having any mild symptoms she can start otherwise to continue her normal prednisone dose. Discussed return precautions. I suspect she had a response to the MRI contrast which was added to her allergy list in the EMR. EKG shows sinus rhythm no acute changes from 04/11/2019 Chest x-ray acute change focal scarring seen again in the right mid lung. Labs normal CBC predominance of lymphocytes. Sodium is 136 electrolytes, BUN creatinine are all normal troponins less than 0.012 with a BNP of 143. Discharge Plan Departure Patient Disposition: Home Clinical Impression: Anaphylaxis Instructions: DI for Anaphylaxis Activity Restrictions/Additional Instructions: You appear to have a significant reaction or anaphylaxis to the contrast given for your MRI. The name of the contrast is gadolinium containing contrast media. Take prednisone once daily until gone. Prescription sent to [facility] in [place]. Please return for any new or recurrent symptoms swelling of your tongue, airway, difficulty with breathing, stridor hoarseness, chest pain or shortness of breath, vomiting, diarrhea, rash or hives or other new or concerning changes. Prescriptions: New prednisone 10 mg tablets,dose pack See Rx Instructions .ROUTE .COMPLEX Qty: 10 0RF Rx Instructions: Take 4 tablets x1 day, then 3 tablets x1 day, then 2 tablets x1 day, then 1 tablet x1 day No Action liothyronine 5 mcg tablet 5 mcg PO DAILY Qty: 90 1RF zolpidem 5 mg tablet 5 mg PO HSP PRN (Reason: insomnia) Qty: 4 1RF Rx Instructions: short supply locally montelukast 10 mg tablet 10 mg PO DAILY Qty: 90 3RF prednisone 1 mg tablet 1 mg PO DAILY Qty: 90 3RF albuterol sulfate 90 mcg/actuation HFA aerosol inhaler 2 puff INHALATION Q6H PRN (Reason: shortness of breath or wheezing) Qty: 6.7 5RF Rx Instructions: Rescue inhaler Advair Diskus 250-50 mcg/dose blister with device 1 inh INHALATION BID Qty: 60 11RF Patient Comments: patient states usually just at night and only if feels she needs to 04/11 Rx Instructions: Take 1 inhalation twice per day to help prevent asthma attacks and shortness of breath paroxetine HCl 20 mg tablet 40 mg PO DAILY Qty: 180 3RF Rx Instructions: Take 2 tabs daily for depression and anxiety ketorolac 10 mg tablet 10 mg PO Q6H PRN (Reason: pain) Qty: 20 0RF Rx Instructions: maximum total duration of 5 days from all oral, intranasal, or parenteral formulations triamcinolone acetonide 0.1 % cream 1 applic topical BID Qty: 30 0RF Rx Instructions: Apply to the affected site 1-2 times a day, up to 2 weeks. omeprazole 20 mg capsule,delayed release(DR/EC) 20 mg PO DAILY Qty: 90 3RF irbesartan 150 mg tablet 150 mg PO QPM Qty: 90 3RF hydrochlorothiazide 12.5 mg capsule 12.5 mg PO DAILY Qty: 90 3RF levothyroxine [Synthroid] 125 mcg tablet 125 mcg PO DAILY Qty: 90 0RF Referrals: Cheli Hoffmann, [employer] [Primary Care Provider] - Stand Alone Forms: Patient Portal/API/Survey
[2024-07-02] MEDS: methylPREDNISolone 125 MG/2 ML VIAL IV (20:07)
[2024-07-02] MEDS: FAMOTIDINE 20 MG/2 ML VIAL IV (20:08)
[2024-07-02] MEDS: diphenhydrAMINE 50 MG/ML VIAL IV (20:08)
[2024-07-02] MEDS: EPINEPHrine 1 MG/ML 0.5 MG IM (20:12)
--- NOTE | 2024-07-02 20:27 | EKG_ITS ---
[place] [id number] [address] [place] [address] Test Date: 2024-07-02 Pat Name: Zora Stevenson Department: Room: Gender: Female Technical Editor: GABRIELLE : 1945 Requested By: Order Number: [id number] Reading MD: Doc Lugo MD Measurements Intervals [place] Rate: 80 P: 60 OK: 142 QRS: 9 QRSD: 78 T: 33 QT: 370 QTc: 426 Interpretive Statements Normal sinus rhythm Nonspecific ST abnormality Electronically Signed On 07-03-2024 8:43:23 PST by Doc Lugo MD
--- NOTE | 2024-07-02 20:30 | DI.RAD.S_ITS ---
PROCEDURE: XR CHEST 1V INDICATIONS: chest pain/anaphylaxis TECHNIQUE: One view of the chest was acquired. COMPARISON: [facility], RAMY, XR CHEST 2V, 10/11/2023, 11:32. [facility], CR, XR CHEST 1V, 04/11/2019, 17:32. FINDINGS: Surgical changes and devices: None. Lungs and pleura: Focal scarring again seen in the right mid lung. No dense airspace disease or pleural effusions. Mediastinum: Normal heart size. Elevation the right hemidiaphragm is again seen Bones and chest wall: Degenerative findings. IMPRESSION: No acute radiographic abnormality on this single view study. Focal scarring again seen in the right mid lung Dictated by: Nabil Adam M.D. on 07/02/2024 at 21:29 Approved by: Nabil Adam M.D. on 07/02/2024 at 21:30
[2024-07-02 20:42] LABS: Add Manual Diff / Slide Review NO; Basophils Absolute Auto 0 /uL (0-100); Basophils Percent Auto 0.4 % (0-2); Eosinophils Absolute Auto 0 /uL (0-450); Eosinophils Percent Auto 0.7 % (2-4); Hematocrit 39.8 % (36-46); Hemoglobin 13.7 g/dL (12.0-16.0); Lymphocytes Absolute Auto 2700 /uL (1100-4500); Lymphocytes Percent Auto 47.5 % (25-40); Mean Corpuscular HGB Conc 34.4 % (30-36); Mean Corpuscular Hemoglobin 30.8 PG (26-34); Mean Corpuscular Volume 89.5 fL (80-100); Monocytes Absolute Auto 400 /uL (0-900); Monocytes Percent Auto 6.3 % (3-14); Neutrophils Absolute Auto 2600 /uL (1500-7000); Neutrophils Percent Auto 45.1 % (50-75); Platelet Count 241 X10^3/uL (150-400); Red Blood Cell Count 4.45 X10^6/uL (4.0-5.2); Red Cell Distribution Width 13.5 % (11.6-14.8); White Blood Cell Count 5.7 X10^3/uL (4.5-11.0)
[2024-07-02 20:47] LABS: Alanine Aminotransferase 26 IU/L (<35); Albumin 4.2 g/dL (3.5-5.0); Albumin Globulin Ratio 1.4 (1.0-2.8); Alkaline Phosphatase 74 U/L (38-126); Aspartate Aminotransferase 36 IU/L (14-36); BUN Creatinine Ratio 14.1 (6-22); Bilirubin Total 0.4 mg/dL (0.2-1.3); Blood Urea Nitrogen 13 mg/dL (7-17); Calcium 9.7 mg/dL (8.4-10.2); Carbon Dioxide 25 mmol/L (22-32); Chloride 103 mmol/L (98-107); Creatine Kinase 38 U/L (30-135); Estimated Glomerular Filt Rate > 60 mL/min (>60); Glucose 105 mg/dL (80-110); HEMOLYSIS < 15 (0-50); Lipase 78 U/L (23-300); Sodium 136 mmol/L (137-145); Total Protein 7.2 g/dL (6.3-8.2)
[2024-07-02 20:56] LABS: NT-proBNP (BNP-Adult 18+) 143 pg/mL (<450)
[2024-07-02 20:58] LABS: Troponin I < 0.012 ng/mL (0.01-0.034)
[2024-07-02] MEDS: PANTOPRAZOLE 40 MG VIAL IV (22:05)
== END 2024-07-02 23:02 | disposition home or self-care (01) ==
PROVIDERS: Emergency Provider Emergency Medicine; PCP Nurse Practitioner Family
DX: T88.6XXA Anaphylactic reaction due to adverse effect of correct drug or medicament properly administered, initial encounter (principal); T50.8X5A Adverse effect of diagnostic agents, initial encounter; R07.9 Chest pain, unspecified; R06.00 Dyspnea, unspecified; R13.10 Dysphagia, unspecified
CPT/HCPCS: 36415; 70551; 71045; 72141; 72146; 80053; 82550; 83690; 83880; 84484; 85025; 93005; 93010; 96372; 96374; 96375; 99284; 99285; 99291; J0171; J1200; J2470; J2919

== ENCOUNTER → 2024-07-11 11:41 | Outpatient (CLI) | payer MEDICARE, OTHER, SELFPAY ==
[2024-07-11 13:20] LABS: Thyroid Stimulating Hormone 1.48 uIU/mL (0.47-4.68)
== END ==
PROVIDERS: PCP Nurse Practitioner Family; Referring Provider Nurse Practitioner Family; Visit Provider Nurse Practitioner Family
DX: R79.89 Other specified abnormal findings of blood chemistry (principal)
CPT/HCPCS: 36415; 84443

== ENCOUNTER → 2024-08-07 12:03 | Outpatient (CLI) | payer MEDICARE, OTHER, SELFPAY ==
[2024-08-07 15:16] LABS: Free T3, Triiodothyronine Free 2.37 pg/mL (2.77-5.27)
[2024-08-07 16:54] LABS: Free T4, Direct Thyroxine 0.44 ng/dL (0.78-2.19)
== END ==
PROVIDERS: PCP Nurse Practitioner Family; Referring Provider Nurse Practitioner Family; Visit Provider Nurse Practitioner Family
DX: E03.9 Hypothyroidism, unspecified (principal); G31.84 Mild cognitive impairment of uncertain or unknown etiology
CPT/HCPCS: 36415; 84439; 84443; 84481

== ENCOUNTER → 2024-08-12 09:46 | Outpatient (CLI) | payer MEDICARE, OTHER, SELFPAY ==
--- NOTE | 2024-08-12 09:47 | DI.US.S_ITS ---
PROCEDURE: US THYROID INDICATIONS: elevated tsh TECHNIQUE: Real-time scanning was performed of the thyroid gland, with image documentation. COMPARISON: None. FINDINGS: Thyroid: Right lobe measures 3.1 x 1.1 x 1.0 cm. Left lobe measures 2.7 x 0.9 x 0.9 cm. Isthmus is 0.3 cm thick. Echotexture is homogeneous. IMPRESSION: No focal lesions. Dictated by: Ana Laura Gr M.D. on 08/12/2024 at 16:13 Approved by: Ana Laura Gr M.D. on 08/12/2024 at 16:15
== END ==
PROVIDERS: PCP Nurse Practitioner Family; Referring Provider Nurse Practitioner Family; Visit Provider Nurse Practitioner Family
DX: R79.89 Other specified abnormal findings of blood chemistry (principal)
CPT/HCPCS: 76536

== ENCOUNTER → 2024-08-15 10:34 | Outpatient (CLI) | payer MEDICARE, OTHER, SELFPAY ==
[2024-08-15 12:21] LABS: Free T4, Direct Thyroxine 1.73 ng/dL (0.78-2.19)
== END ==
PROVIDERS: PCP Nurse Practitioner Family; Referring Provider Nurse Practitioner Family; Visit Provider Nurse Practitioner Family
DX: R79.89 Other specified abnormal findings of blood chemistry (principal)
CPT/HCPCS: 36415; 84439; 84443

== ENCOUNTER → 2024-11-28 12:21 | Outpatient (CLI) | payer MEDICARE, OTHER, SELFPAY ==
[2024-11-28 13:25] LABS: Add Manual Diff / Slide Review NO; Basophils Absolute Auto 100 /uL (0-100); Basophils Percent Auto 0.9 % (0-2); Eosinophils Absolute Auto 300 /uL (0-450); Eosinophils Percent Auto 4.5 % (2-4); Hematocrit 38.6 % (36-46); Hemoglobin 13.3 g/dL (12.0-16.0); Lymphocytes Absolute Auto 1600 /uL (1100-4500); Lymphocytes Percent Auto 24.2 % (25-40); Mean Corpuscular HGB Conc 34.5 % (30-36); Mean Corpuscular Hemoglobin 30.4 PG (26-34); Mean Corpuscular Volume 88.2 fL (80-100); Monocytes Absolute Auto 400 /uL (0-900); Monocytes Percent Auto 6.3 % (3-14); Neutrophils Absolute Auto 4400 /uL (1500-7000); Neutrophils Percent Auto 64.1 % (50-75); Platelet Count 229 X10^3/uL (150-400); Red Blood Cell Count 4.38 X10^6/uL (4.0-5.2); Red Cell Distribution Width 13.6 % (11.6-14.8); White Blood Cell Count 6.8 X10^3/uL (4.5-11.0)
[2024-11-28 14:22] LABS: Alanine Aminotransferase 16 IU/L (<35); Albumin 4.1 g/dL (3.5-5.0); Albumin Globulin Ratio 1.5 (1.0-2.8); Alkaline Phosphatase 98 U/L (38-126); Aspartate Aminotransferase 24 IU/L (14-36); BUN Creatinine Ratio 12.4 (6-22); Bilirubin Total 0.3 mg/dL (0.2-1.3); Blood Urea Nitrogen 12 mg/dL (7-17); Calcium 9.3 mg/dL (8.4-10.2); Carbon Dioxide 24 mmol/L (22-32); Chloride 106 mmol/L (98-107); Cholesterol 241 mg/dL (140-199); Estimated Glomerular Filt Rate 59 mL/min (>60); Globulin 2.7 g/dL (1.7-4.1); Glucose 106 mg/dL (70-99); HDL Cholesterol 50 mg/dL (40-60); HEMOLYSIS < 15 (0-50); LDL Cholesterol Calculated 173 mg/dL (<100); Potassium 3.8 mmol/L (3.4-5.1); Sodium 138 mmol/L (137-145); Total Protein 6.8 g/dL (6.3-8.2); Triglycerides 91 mg/dL (35-150)
[2024-11-28 16:02] LABS: Free T4, Direct Thyroxine 1.11 ng/dL (0.78-2.19)
== END ==
PROVIDERS: PCP Nurse Practitioner Family; Referring Provider Nurse Practitioner Family; Visit Provider Nurse Practitioner Family
DX: R29.6 Repeated falls (principal); I10 Essential (primary) hypertension; G31.84 Mild cognitive impairment of uncertain or unknown etiology; R26.0 Ataxic gait; E78.2 Mixed hyperlipidemia; E03.9 Hypothyroidism, unspecified
CPT/HCPCS: 36415; 80053; 80061; 84439; 84443; 85025

== ENCOUNTER → 2025-01-02 13:56 | Outpatient (CLI) | payer MEDICARE, OTHER, SELFPAY ==
[2025-01-02 15:36] LABS: Vitamin D 25 Hydroxy (D3) 56.2 ng/mL (30.0-100.0)
[2025-01-02 15:49] LABS: TSH w/ Reflex to FT4 0.02 uIU/mL (0.47-4.68)
[2025-01-02 16:08] LABS: Vitamin B12 401 pg/mL (239-931)
[2025-01-02 17:07] LABS: Free T4, Direct Thyroxine 2.79 ng/dL (0.78-2.19)
== END ==
PROVIDERS: PCP Nurse Practitioner Family; Referring Provider Nurse Practitioner Family; Visit Provider Nurse Practitioner Family
DX: G31.84 Mild cognitive impairment of uncertain or unknown etiology (principal); R26.0 Ataxic gait; E03.9 Hypothyroidism, unspecified
CPT/HCPCS: 36415; 82306; 82607; 84439; 84443

== ENCOUNTER → 2025-04-11 14:15 | Outpatient (CLI) | payer MEDICARE, OTHER, SELFPAY ==
[2025-04-11 16:00] LABS: Free T3, Triiodothyronine Free 1.63 pg/mL (2.77-5.27)
[2025-04-11 16:07] LABS: TSH w/ Reflex to FT4 99.20 uIU/mL (0.47-4.68)
[2025-04-11 16:44] LABS: Free T4, Direct Thyroxine 0.28 ng/dL (0.78-2.19)
== END ==
PROVIDERS: PCP Nurse Practitioner Family; Referring Provider Nurse Practitioner Family; Visit Provider Nurse Practitioner Family
DX: E03.9 Hypothyroidism, unspecified (principal)
CPT/HCPCS: 36415; 84439; 84443; 84481

== ENCOUNTER 2025-05-17 11:22 | Emergency (ER) | payer MEDICARE, OTHER, SELFPAY ==
[2025-05-17 11:38] VITALS: BP 146/75; PULSE 68; RESP 17; TEMP 36.2; O2SAT 96; BMI 23.8
--- NOTE | 2025-05-17 11:42 | DI.RAD.S_ITS ---
PROCEDURE: XR ELBOW LT MIN 3V INDICATIONS: swelling of unknown origin TECHNIQUE: 3 views of the elbow were acquired. COMPARISON: None. FINDINGS: Bones: No fractures or dislocations. No suspicious bony lesions. Soft tissues: No elbow joint effusion. No suspicious soft tissue calcifications. IMPRESSION: No acute bony abnormality or significant joint effusion. Dictated by: Rush Cameron M.D. on 05/17/2025 at 13:01 Approved by: Rush Cameron M.D. on 05/17/2025 at 13:01
--- NOTE | 2025-05-17 11:42 | DI.RAD.S_ITS ---
PROCEDURE: XR WRIST LT MIN 3V INDICATIONS: swelling of unknown origin TECHNIQUE: 4 views of the wrist were acquired. COMPARISON: None. FINDINGS: Bones: No fractures or dislocations. No suspicious bony lesions. 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 Increased volar luxation of the scaphoid, likely secondary to chronic degeneration versus remote tear of the scapholunate ligament. Soft tissues: Degenerative soft tissue calcifications along the radiocarpal joint.. Soft tissue swelling of the wrist. No radiopaque retained foreign body. IMPRESSION: Soft tissue swelling of the wrist without acute osseous abnormality. 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 Dictated by: Rush Cameron M.D. on 05/17/2025 at 12:58 Approved by: Rush Cameron M.D. on 05/17/2025 at 13:00
--- NOTE | 2025-05-17 11:42 | DI.RAD.S_ITS ---
PROCEDURE: XR FOREARM LT 2V INDICATIONS: swelling of unknown origin TECHNIQUE: 2 views of the forearm were acquired. COMPARISON: None. FINDINGS: Bones: No fractures or dislocations. No suspicious bony lesions. Soft tissues: No suspicious soft tissue calcifications or masses. Soft tissue swelling of the forearm. IMPRESSION: No acute bony abnormality. Dictated by: Rush Cameron M.D. on 05/17/2025 at 13:00 Approved by: Rush Cameron M.D. on 05/17/2025 at 13:01
--- NOTE | 2025-05-17 13:25 | PC.NURSE ---
Patient and family member stating intent to leave at registration. Will VDC.
--- NOTE | 2025-05-18 07:44 | ED.EXTPRO ---
HPI - Extremity Problem General Chief complaint: Extremity Problem,Nontraumatic Stated complaint: L wrist pain Time Seen by Provider: 05/17/25 11:30 Source: EMS Mode of arrival: Wheelchair Related Data Home Medications ?Medication ?Instructions ?Recorded ?Confirmed fluticasone 250 mcg-salmeterol 50 1 inh inhalation BID PRN 08/15/24 04/11/25 mcg/dose blistr powdr for inhalation (Advair Diskus) Previous Rx's ?Medication ?Instructions ?Recorded prednisone 1 mg tablet 1 mg PO DAILY #90 tabs 08/29/23 albuterol sulfate 90 mcg/actuation 2 puff inhalation Q6H PRN 01/03/24 aerosol inhaler shortness of breath or wheezing #6.7 grams hydrochlorothiazide 12.5 mg capsule 12.5 mg PO DAILY #90 caps 06/13/24 DISABLED PARKING PERMIT #1 ea 11/28/24 4 wheel walker #1 ea 12/04/24 omeprazole 20 mg capsule,delayed 20 mg PO DAILY #30 caps 01/02/25 release irbesartan 150 mg tablet 150 mg PO QPM #90 tabs 03/31/25 levothyroxine 137 mcg tablet 137 mcg PO DAILY #90 tabs 04/11/25 paroxetine HCl 20 mg tablet 40 mg (2 x 20 mg) PO DAILY #180 04/11/25 tabs Allergies Allergy/AdvReac Type Severity Reaction Status Date / Time Gadolinium-Containing Allergy Severe Anaphylaxis Verified 05/17/25 11:38 Contrast Medi latex Allergy Rash to Verified 05/17/25 11:38 tape Patient History Medical History (Updated 05/17/25 @ 13:27 by Maria C Snowden RN) Frequent falls Ataxic gait Mild cognitive impairment Family history of heart disease in male family member before age 55 Hypertriglyceridemia Abdominal bloating Generalized anxiety disorder Family history of colon cancer Chronic insomnia Osteopenia Asthma, mild intermittent Depression, major, recurrent GERD without esophagitis Acquired hypothyroidism Osteopenia after menopause Seborrheic keratoses Multiple benign nevi Spine pain, lumbosacral Facet arthropathy of spine Spinal stenosis, lumbar Asthma Tear of medial meniscus of right knee (03/2016) Hypothyroidism Surgical History History of arthroplasty of right knee History of hysterectomy History of appendectomy S/P arthroscopic partial medial meniscectomy (09/06/16) Social History marital status: details: , 3 children, dental staff physical therapy assistant household members: spouse lives independently: Yes occupational status: previously employed alcohol intake: never substance use type: does not use alcohol intake frequency: holidays/special occasions only Exam Initial Vital Signs Initial Vital Signs: Vital Signs Temperature 97.2 F L 05/17/25 11:38 Pulse Rate 68 05/17/25 11:38 Respiratory Rate 17 05/17/25 11:38 Blood Pressure 146/75 H 05/17/25 11:38 Pulse Oximetry 96 05/17/25 11:38 Oxygen Delivery Method Room Air 05/17/25 11:38 Discharge Plan Departure Patient Disposition: Left Without Being Seen Clinical Impression: Patient left without being seen Prescriptions: No Action (DME) 4 wheel walker See Rx Instructions .Route .MEDSUPPLY Qty: 1 0RF Rx Instructions: Obtain assistive device with [employer] omeprazole 20 mg capsule,delayed release(DR/EC) 20 mg PO DAILY Qty: 30 0RF irbesartan 150 mg tablet 150 mg PO QPM Qty: 90 0RF prednisone 1 mg tablet 1 mg PO DAILY Qty: 90 3RF albuterol sulfate 90 mcg/actuation HFA aerosol inhaler 2 puff INHALATION Q6H PRN (Reason: shortness of breath or wheezing) Qty: 6.7 5RF Rx Instructions: Rescue inhaler (DME) DISABLED PARKING PERMIT See Rx Instructions .ROUTE .MEDSUPPLY Qty: 1 0RF Rx Instructions: I FIND THIS PATIENT TO BE MEDICALLY DISABLED AND QUALIFIED FOR DISABLE PARKING INDICATED, AND SIGNED ON THE ACCOMPANYING [employer] APPLICATION FOR INDIVIDUALS hydrochlorothiazide 12.5 mg capsule 12.5 mg PO DAILY Qty: 90 3RF Advair Diskus 250-50 mcg/dose blister with device 1 inh INHALATION BID PRN Patient Comments: patient states usually just at night and only if feels she needs to 04/11 Rx Instructions: Take 1 inhalation twice per day to help prevent asthma attacks and shortness of breath paroxetine HCl 20 mg tablet 40 mg PO DAILY Qty: 180 3RF Rx Instructions: Take 2 tabs daily for depression and anxiety levothyroxine 137 mcg tablet 137 mcg PO DAILY Qty: 90 3RF Rx Instructions: Take 1 hour prior to food or drink.
== END 2025-05-17 13:26 | disposition left against medical advice (07) ==
LOC: ED 11:35
PROVIDERS: Emergency Provider Family Medicine; PCP Nurse Practitioner Family
DX: M25.532 Pain in left wrist (principal)
CPT/HCPCS: 73080; 73090; 73110; 99281

== ENCOUNTER 2025-05-18 11:33 | Emergency (ER) | payer MEDICARE, OTHER, SELFPAY ==
[2025-05-18 11:53] VITALS: BP 145/81; PULSE 73; RESP 18; TEMP 36.2; O2SAT 97; BMI 22.3
--- NOTE | 2025-05-18 12:15 | ED.UPPEXIN ---
HPI - Extremity Injury (Upper) General Chief Complaint: Extremity Injury, Upper Stated Complaint: poss broken L wrist Time Seen by Provider: 05/18/25 11:39 Source: patient Mode of arrival: Wheelchair Related Data Home Medications ?Medication ?Instructions ?Recorded ?Confirmed fluticasone 250 mcg-salmeterol 50 1 inh inhalation BID PRN 08/15/24 04/11/25 mcg/dose blistr powdr for inhalation (Advair Diskus) Previous Rx's ?Medication ?Instructions ?Recorded prednisone 1 mg tablet 1 mg PO DAILY #90 tabs 08/29/23 albuterol sulfate 90 mcg/actuation 2 puff inhalation Q6H PRN 01/03/24 aerosol inhaler shortness of breath or wheezing #6.7 grams hydrochlorothiazide 12.5 mg capsule 12.5 mg PO DAILY #90 caps 06/13/24 DISABLED PARKING PERMIT #1 ea 11/28/24 4 wheel walker #1 ea 12/04/24 omeprazole 20 mg capsule,delayed 20 mg PO DAILY #30 caps 01/02/25 release irbesartan 150 mg tablet 150 mg PO QPM #90 tabs 03/31/25 levothyroxine 137 mcg tablet 137 mcg PO DAILY #90 tabs 04/11/25 paroxetine HCl 20 mg tablet 40 mg (2 x 20 mg) PO DAILY #180 04/11/25 tabs hydrocodone 5 mg-acetaminophen 325 1 tab PO Q4-6H PRN pain #20 tabs 05/18/25 mg tablet Allergies Allergy/AdvReac Type Severity Reaction Status Date / Time Gadolinium-Containing Allergy Severe Anaphylaxis Verified 05/18/25 11:50 Contrast Medi latex Allergy Rash to Verified 05/18/25 11:50 tape Patient History Medical History (Updated 05/18/25 @ 12:34 by Doc Decker, DO) Frequent falls Ataxic gait Mild cognitive impairment Family history of heart disease in male family member before age 55 Hypertriglyceridemia Abdominal bloating Generalized anxiety disorder Family history of colon cancer Chronic insomnia Osteopenia Asthma, mild intermittent Depression, major, recurrent GERD without esophagitis Acquired hypothyroidism Osteopenia after menopause Seborrheic keratoses Multiple benign nevi Spine pain, lumbosacral Facet arthropathy of spine Spinal stenosis, lumbar Asthma Tear of medial meniscus of right knee (03/2016) Hypothyroidism Surgical History History of arthroplasty of right knee History of hysterectomy History of appendectomy S/P arthroscopic partial medial meniscectomy (09/06/16) Social History marital status: details: , 3 children, dental intellectual property legal assistant household members: spouse lives independently: Yes occupational status: previously employed alcohol intake: never substance use type: does not use alcohol intake frequency: holidays/special occasions only Exam Initial Vital Signs Initial Vital Signs: Vital Signs Temperature 97.1 F L 05/18/25 11:53 Pulse Rate 73 05/18/25 11:53 Respiratory Rate 18 05/18/25 11:53 Blood Pressure 145/81 H 05/18/25 11:53 Pulse Oximetry 97 05/18/25 11:53 Oxygen Delivery Method Room Air 05/18/25 11:53 Course Vital Signs Vital signs: Vital Signs - 8 hr 05/18/25 11:53 Temperature 97.1 F L Pulse Rate 73 Respiratory Rate 18 Blood Pressure 145/81 H Pulse Oximetry 97 Oxygen Delivery Method Room Air MDM - Extremity Injury (Upper) Imaging Data Extremity x-ray #1: Radiologist's Impression: [place] [address] XRay Report Signed Patient: Zora Stevenson MR#: [id number] : 1945 Acct:[id number] Age/Sex: 79 / F Date of Service: 05/17/25 Loc: ED Accession Number: [id number] Procedure: XR wrist LT min 3V Ordering Provider: Doc Decker D.O. PROCEDURE: XR WRIST LT MIN 3V INDICATIONS: swelling of unknown origin TECHNIQUE: 4 views of the wrist were acquired. COMPARISON: None. FINDINGS: Bones: No fractures or dislocations. No suspicious bony lesions. 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 Increased volar luxation of the scaphoid, likely secondary to chronic degeneration versus remote tear of the scapholunate ligament. Soft tissues: Degenerative soft tissue calcifications along the radiocarpal joint.. Soft tissue swelling of the wrist. No radiopaque retained foreign body. IMPRESSION: Soft tissue swelling of the wrist without acute osseous abnormality. 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 Extremity x-ray #2: Radiologist's Impression: [address] [address] XRay Report Signed Patient: Zora Stevenson MR#: [id number] : 1945 Acct:[id number] Age/Sex: 79 / F Date of Service: 05/17/25 Loc: ED Accession Number: [id number] Procedure: XR forearm LT 2V Ordering Provider: Doc Decker D.O. PROCEDURE: XR FOREARM LT 2V INDICATIONS: swelling of unknown origin TECHNIQUE: 2 views of the forearm were acquired. COMPARISON: None. FINDINGS: Bones: No fractures or dislocations. No suspicious bony lesions. Soft tissues: No suspicious soft tissue calcifications or masses. Soft tissue swelling of the forearm. IMPRESSION: No acute bony abnormality. Extremity x-ray #3: Radiologist's Impression: [address] [address] XRay Report Signed Patient: Zora Stevenson MR#: [id number] : 1945 Acct:[id number] Age/Sex: 79 / F Date of Service: 05/17/25 Loc: ED Accession Number: [id number] Procedure: XR elbow LT min 3V Ordering Provider: Doc Decker D.O. PROCEDURE: XR ELBOW LT MIN 3V INDICATIONS: swelling of unknown origin TECHNIQUE: 3 views of the elbow were acquired. COMPARISON: None. FINDINGS: Bones: No fractures or dislocations. No suspicious bony lesions. Soft tissues: No elbow joint effusion. No suspicious soft tissue calcifications. IMPRESSION: No acute bony abnormality or significant joint effusion. Dictated by: Rush Cameron M.D. on 05/17/2025 at 13:01 Approved by: Rush Cameron M.D. on 05/17/2025 at 13:01 [facility] Narrative Medical decision making narrative: All lab work, vital signs, nurse triage note, medication list, previous ER visits, and all imaging studies reviewed. X-ray wrist showed soft tissue swelling of the wrist without acute osseous osseous abnormality. 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 Forearm shows no acute bony abnormality. Differential diagnosis arthritis dislocation cellulitis fracture Elbow showed no acute bony abnormality or significant joint effusion. D/c home on [place] rx Discharge Plan Departure Patient Disposition: Home Clinical Impression: Arthritis Instructions: DI for Arthritis Activity Restrictions/Additional Instructions: Return with new or worsening symptoms. Take medicine as directed for pain control. Follow up with PCP 1 week if no improvement in symptoms. Prescriptions: New hydrocodone-acetaminophen 5-325 mg tablet 1 tab PO Q4-6H PRN (Reason: pain) Qty: 20 0RF No Action (DME) 4 wheel walker See Rx Instructions .Route .MEDSUPPLY Qty: 1 0RF Rx Instructions: Obtain assistive device with [employer] omeprazole 20 mg capsule,delayed release(DR/EC) 20 mg PO DAILY Qty: 30 0RF irbesartan 150 mg tablet 150 mg PO QPM Qty: 90 0RF prednisone 1 mg tablet 1 mg PO DAILY Qty: 90 3RF albuterol sulfate 90 mcg/actuation HFA aerosol inhaler 2 puff INHALATION Q6H PRN (Reason: shortness of breath or wheezing) Qty: 6.7 5RF Rx Instructions: Rescue inhaler (DME) DISABLED PARKING PERMIT See Rx Instructions .ROUTE .MEDSUPPLY Qty: 1 0RF Rx Instructions: I FIND THIS PATIENT TO BE MEDICALLY DISABLED AND QUALIFIED FOR DISABLE PARKING INDICATED, AND SIGNED ON THE ACCOMPANYING [employer] APPLICATION FOR INDIVIDUALS hydrochlorothiazide 12.5 mg capsule 12.5 mg PO DAILY Qty: 90 3RF Advair Diskus 250-50 mcg/dose blister with device 1 inh INHALATION BID PRN Patient Comments: patient states usually just at night and only if feels she needs to 04/11 Rx Instructions: Take 1 inhalation twice per day to help prevent asthma attacks and shortness of breath paroxetine HCl 20 mg tablet 40 mg PO DAILY Qty: 180 3RF Rx Instructions: Take 2 tabs daily for depression and anxiety levothyroxine 137 mcg tablet 137 mcg PO DAILY Qty: 90 3RF Rx Instructions: Take 1 hour prior to food or drink. Referrals: Cheli Hoffmann, [id number] [Primary Care Provider, Family Practice] Stand Alone Forms: Patient Portal/API
== END 2025-05-18 12:38 | disposition home or self-care (01) ==
PROVIDERS: Emergency Provider Family Medicine; PCP Nurse Practitioner Family
DX: M19.032 Primary osteoarthritis, left wrist (principal)
CPT/HCPCS: 99283

== ENCOUNTER → 2025-06-03 12:35 | Outpatient (CLI) | payer MEDICARE, SELFPAY ==
[2025-06-03 14:18] LABS: TSH w/ Reflex to FT4 0.05 uIU/mL (0.47-4.68)
[2025-06-03 14:47] LABS: Free T4, Direct Thyroxine 4.53 ng/dL (0.78-2.19)
== END ==
PROVIDERS: PCP Nurse Practitioner Family; Referring Provider Nurse Practitioner Family; Visit Provider Nurse Practitioner Family
DX: R79.89 Other specified abnormal findings of blood chemistry (principal)
CPT/HCPCS: 36415; 84439; 84443